=== PATIENT | male | born 1965 | race African-American/Black ===

== ENCOUNTER 2019-05-15 22:27 | Inpatient (IN) ==
[2019-05-15] MEDS ORDERED: ASPIRIN PO ONE (22:39)
[2019-05-15] MEDS ORDERED: NS 1,000 ML IV ONE (23:23)
[2019-05-15] MEDS ORDERED: ROCEPHIN 1 GM in NS 50 ML IV ONE (23:23)
[2019-05-15 23:30] LABS: BASO# 0.02 X1000 (0.0-0.2); BASO% 0.1 % (0.0-0.8); HEMATOCRIT 38.2 % (42.0-52.0); HEMOGLOBIN 13.6 g/dL (14.0-18.0); IMM GRAN# 0.04 X1000 (0.0-0.04); IMM GRAN% 0.2 % (0.0-0.5); LYMPH# 1.69 X1000 (1.2-3.4); MCHC 35.6 g/dL (33-37); MCV 92.7 FL (81-99); MONO# 1.46 X1000 (0.11-0.59); MONO% 8.7 % (1.7-9.3); MPV 11.8 FL (7.4-10.4); NEUT# 13.66 X1000 (1.4-6.5); PLT 114 X1000 (130-400); RBC 4.12 XMIL (4.7-6.1); RDW 13.3 % (11.5-14.5); WBC 16.87 X1000 (4.8-10.8)
[2019-05-15 23:45] LABS: INFLUENZA A NEGATIVE (NEGATIVE); INFLUENZA B NEGATIVE (NEGATIVE)
[2019-05-15 23:47] LABS: INR 0.89; PROTIME 12.5 Seconds (11.0-16.0)
[2019-05-15 23:48] LABS: PTT 27.8 Seconds (22.3-41.8)
[2019-05-15 23:50] LABS: URINE SOURCE CLEAN CATCH
[2019-05-15 23:53] LABS: BILIRUBIN URINE SMALL (NEGATIVE); BLOOD URINE TRACE (NEGATIVE); COLOR ORANGE; GLUCOSE URINE TRACE mg/dL (NEGATIVE); KETONE URINE 10 mg/dL (NEGATIVE); LEUKOCYTES URINE NEGATIVE (NEGATIVE); NITRITE URINE NEGATIVE (NEGATIVE); PROTEIN URINE 100 mg/dL (NEGATIVE); SP GRAVITY URINE 1.028; TURBIDITY URINE TURBID (CLEAR); UROBILINOGEN URINE 4 mg/dL (NORMAL)
[2019-05-15 23:59] LABS: ALBUMIN 4.6 g/dL (3.5-5.0); CALCIUM 9.8 mg/dL (8.8-10.2); CREATININE 1.3 mg/dL (0.7-1.2); POTASSIUM 4.2 mmol/L (3.5-5.1); TOTAL PROTEIN 7.9 g/dL (6.3-8.3)
[2019-05-16 00:03] LABS: UR AMPHETAMINES QUAL NONE DETECTED (NONE DETECT); UR BARBITUATES QUAL NONE DETECTED (NONE DETECT); UR BENZODIAZEPIN QUAL NONE DETECTED (NONE DETECT); UR CANNABINOIDS QUAL PRESUMPTIVE POSITIVE (NONE DETECT); UR COCAINE QUAL PRESUMPTIVE POSITIVE (NONE DETECT); UR METHADONE QUAL NONE DETECTED (NONE DETECT); UR METHAMPHETAMINE QUAL NONE DETECTED (NONE DETECT); UR OPIATES QUAL NONE DETECTED (NONE DETECT); UR OXYCODONE QUAL NONE DETECTED (NONE DETECT); UR PCP QUAL NONE DETECTED (NONE DETECT); UR PROPOXYPHENE QUAL NONE DETECTED (NONE DETECT); UR TCA QUAL NONE DETECTED (NONE DETECT)
[2019-05-16 00:09] LABS: UR EPITHELIAL CELLS <10 /HPF (<10); URINE BACTERIA 3+ /HPF; URINE RBC <10 /HPF (<10); URINE WBC <10 /HPF (<10); URINE YEAST NONE SEEN
[2019-05-16 00:11] LABS: URINE CRYSTALS NONE SEEN; URINE SMALL ROUND CELLS NONE SEEN
[2019-05-16 00:16] LABS: CK-MB 8.35 ng/mL (0.0-5.0)
[2019-05-16] MEDS ORDERED: SOLU-MEDROL IV ONE (00:30)
[2019-05-16] MEDS ORDERED: SODIUM CHLORIDE 0.9% INJ ONE (00:30)
[2019-05-16] MEDS ORDERED: PEPCID IV ONE (00:30)
[2019-05-16] MEDS ORDERED: NEO-SYNEPHRINE ONE (00:56)
[2019-05-16] MEDS ORDERED: NS 250 ML ONE (00:56)
[2019-05-16] MEDS ORDERED: NEO-SYNEPHRINE 50 MG in NS 250 ML IV SCH (01:00)
--- NOTE | 2019-05-16 02:26 | PROVIDER DOCUMENTATION ---
This chart was entered by Dina Cesar Scribe, acting as scribe for Jimmy Salmon MD. HPI-Respiratory General - General Chief Complaint: Shortness of Breath Stated Complaint: SOB Time Seen by Provider: 05/15/19 22:52 Source: patient, family (father) Allergies/Adverse Reactions: Patient Allergies Allergy/AdvReac Type Severity Reaction Status Date / Time No Known Allergies Allergy Verified 05/15/19 22:41 Home Medications: Home Medication List Medication Instructions Recorded Confirmed Last Taken Type NK [No Home Medications] 05/15/19 05/15/19 Unknown History - History of Present Illness-Resp Nature of Presenting Problem: Pt is a 53 yobm with c/o of SOB / dyspnea, pain w/ inspiration, productive cough with green phlegm, sore throat, and chills that pt states started yesterday. Pt states he has not been eating and drinking. Pt denies hx of COPD, HTN and Diabetes. Pt states he smokes. Pt is alert and nontoxic in appearance. Quality of Pain: reports: tightness Severity in ED: reports: moderate Onset/Duration: reports: abrupt, 24 hours ago Timing: reports: still present, constant Exposure: reports: unknown cause Cough Quality/Degree: reports: productive cough (with green phlegm) Current Respiratory Medication Therapy: Initiated see nurses note Modifying Factors: worse with: exertion, coughing, deep breath Associated Symptoms: reports: chest pain/soreness, cough, fever/chills, hurts to breathe, shortness of breath Similar Symptoms Previously?: No Recently seen or treated by another doctor?: No Review of Systems - Adult - REVIEW OF SYSTEMS - ADULT Constitutional: reports: chills Eyes: reports: no symptoms reported Ears, Nose, Mouth & Throat: reports: no symptoms reported Cardiovascular: reports: chest pain. denies: syncope Respiratory: reports: cough (productive with green phlegm), shortness of breath Gastrointestinal: denies: abdominal pain, nausea, vomiting Genitourinary: reports: no symptoms reported Musculoskeletal: reports: no symptoms reported Integumentary: reports: no symptoms reported Neurological: reports: no symptoms reported Psychiatric: reports: no symptoms reported Endocrine: reports: no symptoms reported Hematologic/Lymphatic: reports: no symptoms reported Allergic/Immunologic: reports: no symptoms reported All Other Systems: Reviewed and Negative Past History - Adult - PAST MEDICAL HISTORY-ADULT Review of Records: reports: Nursing Assessment Review, Medications Reviewed, Social history reviewed & non-contributory. Major Childhood Illnesses: reports: denies history Cardiovascular: denies: cardiac disease, A-Fib, blood clots, CAD, HTN, PAD, palpitations Respiratory: reports: bronchitis, COPD. denies: pneumonia, tuberculosis Gastrointestinal: reports: denies history Obstetrical/Gynecological: reports: denies history Genitourinary: reports: denies history. denies: kidney disease, kidney stones Musculoskeletal: reports: neck/back injury (chronic neck pain) Neurological: reports: denies history Psychiatric: reports: denies history Endocrine/Immune: reports: denies history Other Conditions: reports: denies history - PRIOR SURGERIES/PROCEDURES Surgical/Procedure History: reports: orthopedic (extremity) - IMMUNIZATION STATUS Childhood Immunizations: See Nurse Assessment Flu Vaccine: See Nurse Assessment - FAMILY HISTORY Family History: reviewed, not pertinent - SOCIAL HISTORY Smoking: cigarettes, greater than 1 pack/day Substance Use: alcohol Living Situation: family (father) Physical Exam-General - PHYSICAL EXAM-ADULT Initial Vital Signs Reviewed: Yes (Temp 97.4; HR 119) - CONSTITUTIONAL General Appearance: appears well, alert, mild distress, thin - EYES Eyes: PERRL/EOMI, pink conjunctivae - HEAD, EARS, NOSE, MOUTH & THROAT HENMT: normocephalic/atraumatic, moist mucous membranes, normal ENT inspection - NECK Neck: non-tender, full range of motion, supple, normal inspection - RESPIRATORY Respiratory: lungs clear, normal breath sounds, no respiratory distress, pain on inspiration, other (pleuritic chest pain) - CARDIOVASCULAR Cardiovascular: normal peripheral pulses, no edema, no gallop, no JVD, no murmur , tachycardia - GASTROINTESTINAL (ABDOMEN) Abdominal Exam: normal bowel sounds, non tender, soft, no organomegaly, no pulsatile mass - LYMPHATIC Lymphatic: no adenopathy - MUSCULOSKELETAL Back Exam: normal inspection, no CVA tenderness, no vertebral tenderness Extremity: normal range of motion, non-tender, normal gait, normal inspection, no pedal edema, no calf tenderness, normal capillary refill - SKIN Integumentary: normal color, normal turgor, warm/dry - NEUROLOGIC Neurologic: grossly normal - PSYCHIATRIC Psych/Mental Status: normal thought content, normal thought process, oriented x 3, anxious Progress - PLAN OF CARE/RESULTS Progress/Plan/Lab Results: Vital Signs - 8 hr 05/15/19 22:30 05/16/19 00:24 05/16/19 00:32 Temperature 97.4 F L Pulse Rate 119 H 110 H 107 H Respiratory Rate 18 30 H 31 H Blood Pressure 108/66 89/65 96/72 O2 Sat by Pulse Oximetry 100 100 100 05/16/19 01:09 05/16/19 01:45 05/16/19 02:07 Temperature 98.0 F Pulse Rate 98 H 100 H 100 H Respiratory Rate 30 H 30 H 25 H Blood Pressure 67/46 105/76 99/72 O2 Sat by Pulse Oximetry 100 100 100 05/16/19 02:16 Temperature Pulse Rate Respiratory Rate Blood Pressure 105/73 O2 Sat by Pulse Oximetry Laboratory Results - last 24 hr 05/15/19 05/15/19 05/15/19 22:43 23:05 23:05 WBC RBC Hgb Hct MCV MCH MCHC RDW Std Deviation Plt Count MPV Immature Gran % (Auto) Neut % (Auto) Lymph % (Auto) [place] % (Auto) Eos % (Auto) Baso % (Auto) Immature Gran # (Auto) Neut # (Auto) Lymph # (Auto) [place] # (Auto) Eos # (Auto) Baso # (Auto) PT INR PTT (Actin FS) Sodium 137 Potassium 4.2 Chloride 96 L Carbon Dioxide 22 L Anion Gap 20 BUN 12 Creatinine 1.3 H Estimated GFR/1.73 m2 58 BUN/Creatinine Ratio 9 Glucose 143 H Calculated Osmolality 276 Calcium 9.8 Total Bilirubin 2.00 H AST 123 H ALT 123 H Alkaline Phosphatase 127 H Creatine Kinase 209 H Creatine Kinase Index 4.0 H CK-MB (CK-2) 8.35 H Troponin T High Sens [id number] Pept 82203 H Total Protein 7.9 Albumin 4.6 Globulin 3.0 Albumin/Globulin Ratio 1.0 Plasma Lactate Urine Source Urine Color Urine Turbidity Urine pH Ur Specific Baker Urine Protein Ur Glucose (Stick) Ur Ketones (Stick) Urine Blood Urine Nitrite Urine Bilirubin Urobilinogen Dipstick Urine Leukocytes Urine WBC (Auto) Urine RBC (Auto) U Epithel Cells (Auto) Urine Bacteria (Auto) Urine Crystals Small Round Cells Urine Casts Urine Yeast-like Cells Urine Opiates Screen Ur Oxycodone Screen Urine Methadone Screen U Propoxyphene Qual Ur Barbituates Screen Ur Tricyclics Screen Ur Phencyclidine Scrn Ur Amphetamines Screen U Methamphetamines Scrn U Benzodiazepines Scrn Urine Cocaine Screen U Cannabinoids Screen Influenza A (Rapid) NEGATIVE Influenza B (Rapid) NEGATIVE 05/15/19 05/15/19 05/15/19 23:05 23:05 23:05 WBC 16.87 H RBC 4.12 L Hgb 13.6 L Hct 38.2 L MCV 92.7 MCH 33.0 H MCHC 35.6 RDW Std Deviation 13.3 Plt Count 114 L MPV 11.8 H Immature Gran % (Auto) 0.2 Neut % (Auto) 81.0 H Lymph % (Auto) 10.0 L [place] % (Auto) 8.7 Eos % (Auto) 0.0 Baso % (Auto) 0.1 Immature Gran # (Auto) 0.04 Neut # (Auto) 13.66 H Lymph # (Auto) 1.69 [place] # (Auto) 1.46 H Eos # (Auto) 0.00 Baso # (Auto) 0.02 PT 12.5 INR 0.89 PTT (Actin FS) 27.8 Sodium Potassium Chloride Carbon Dioxide Anion Gap BUN Creatinine Estimated GFR/1.73 m2 BUN/Creatinine Ratio Glucose Calculated Osmolality Calcium Total Bilirubin AST ALT Alkaline Phosphatase Creatine Kinase Creatine Kinase Index CK-MB (CK-2) Troponin T High Sens 176 H* [id number] Pept Total Protein Albumin Globulin Albumin/Globulin Ratio Plasma Lactate Urine Source Urine Color Urine Turbidity Urine pH Ur Specific Baker Urine Protein Ur Glucose (Stick) Ur Ketones (Stick) Urine Blood Urine Nitrite Urine Bilirubin Urobilinogen Dipstick Urine Leukocytes Urine WBC (Auto) Urine RBC (Auto) U Epithel Cells (Auto) Urine Bacteria (Auto) Urine Crystals Small Round Cells Urine Casts Urine Yeast-like Cells Urine Opiates Screen Ur Oxycodone Screen Urine Methadone Screen U Propoxyphene Qual Ur Barbituates Screen Ur Tricyclics Screen Ur Phencyclidine Scrn Ur Amphetamines Screen U Methamphetamines Scrn U Benzodiazepines Scrn Urine Cocaine Screen U Cannabinoids Screen Influenza A (Rapid) Influenza B (Rapid) 05/15/19 05/15/19 05/15/19 23:05 23:29 23:29 WBC RBC Hgb Hct MCV MCH MCHC RDW Std Deviation Plt Count MPV Immature Gran % (Auto) Neut % (Auto) Lymph % (Auto) [place] % (Auto) Eos % (Auto) Baso % (Auto) Immature Gran # (Auto) Neut # (Auto) Lymph # (Auto) [place] # (Auto) Eos # (Auto) Baso # (Auto) PT INR PTT (Actin FS) Sodium Potassium Chloride Carbon Dioxide Anion Gap BUN Creatinine Estimated GFR/1.73 m2 BUN/Creatinine Ratio Glucose Calculated Osmolality Calcium Total Bilirubin AST ALT Alkaline Phosphatase Creatine Kinase Creatine Kinase Index CK-MB (CK-2) Troponin T High Sens [id number] Pept Total Protein Albumin Globulin Albumin/Globulin Ratio Plasma Lactate 2.9 H Urine Source CLEAN CATCH Urine Color ORANGE Urine Turbidity TURBID Urine pH 6.0 Ur Specific Baker 1.028 Urine Protein 100 A Ur Glucose (Stick) TRACE Ur Ketones (Stick) 10 A Urine Blood TRACE A Urine Nitrite NEGATIVE Urine Bilirubin SMALL A Urobilinogen Dipstick 4 A Urine Leukocytes NEGATIVE Urine WBC (Auto) <10 Urine RBC (Auto) <10 U Epithel Cells (Auto) <10 Urine Bacteria (Auto) 3+ Urine Crystals NONE SEEN Small Round Cells NONE SEEN Urine Casts WHITE CELL PRESENT Urine Yeast-like Cells NONE SEEN Urine Opiates Screen NONE DETECTED Ur Oxycodone Screen NONE DETECTED Urine Methadone Screen NONE DETECTED U Propoxyphene Qual NONE DETECTED Ur Barbituates Screen NONE DETECTED Ur Tricyclics Screen NONE DETECTED Ur Phencyclidine Scrn NONE DETECTED Ur Amphetamines Screen NONE DETECTED U Methamphetamines Scrn NONE DETECTED U Benzodiazepines Scrn NONE DETECTED Urine Cocaine Screen PRESUMPTIVE POSITIVE A U Cannabinoids Screen PRESUMPTIVE POSITIVE A Influenza A (Rapid) Influenza B (Rapid) 05/16/19 05/16/19 01:38 01:38 WBC RBC Hgb Hct MCV MCH MCHC RDW Std Deviation Plt Count MPV Immature Gran % (Auto) Neut % (Auto) Lymph % (Auto) [place] % (Auto) Eos % (Auto) Baso % (Auto) Immature Gran # (Auto) Neut # (Auto) Lymph # (Auto) [place] # (Auto) Eos # (Auto) Baso # (Auto) PT INR PTT (Actin FS) Sodium Potassium Chloride Carbon Dioxide Anion Gap BUN Creatinine Estimated GFR/1.73 m2 BUN/Creatinine Ratio Glucose Calculated Osmolality Calcium Total Bilirubin AST ALT Alkaline Phosphatase Creatine Kinase Creatine Kinase Index CK-MB (CK-2) Troponin T High Sens 129 H* Msk-H-Yiucnpvatyk Pept Total Protein Albumin Globulin Albumin/Globulin Ratio Plasma Lactate 1.7 Urine Source Urine Color Urine Turbidity Urine pH Ur Specific Baker Urine Protein Ur Glucose (Stick) Ur Ketones (Stick) Urine Blood Urine Nitrite Urine Bilirubin Urobilinogen Dipstick Urine Leukocytes Urine WBC (Auto) Urine RBC (Auto) U Epithel Cells (Auto) Urine Bacteria (Auto) Urine Crystals Small Round Cells Urine Casts Urine Yeast-like Cells Urine Opiates Screen Ur Oxycodone Screen Urine Methadone Screen U Propoxyphene Qual Ur Barbituates Screen Ur Tricyclics Screen Ur Phencyclidine Scrn Ur Amphetamines Screen U Methamphetamines Scrn U Benzodiazepines Scrn Urine Cocaine Screen U Cannabinoids Screen Influenza A (Rapid) Influenza B (Rapid) Orders Category Date Time Status Admit [facility] Routine AdmDCTranf 05/16/19 02:18 Active Bedrest [Activity Type] ORDERED Care 05/16/19 02:21 Active Cardiac Monitoring DIRECTED Care 05/15/19 22:39 Active NEWS Score 2-4:Order NEWS Lactate Series NOW Care 05/15/19 22:38 Active Oxygen Therapy- ED Nursing DIRECTED Care 05/15/19 22:39 Active Saline Loc NOW Care 05/15/19 22:39 Active Vital Signs Order Q1H Care 05/16/19 02:19 Active CHEST-2 VIEWS [RAD] Stat Exams 05/15/19 22:39 Taken US ABDOMEN-COMPLETE [US] Stat Exams 05/16/19 02:23 Ordered BLOOD CULTURE [BLDCUL] Stat Lab 05/15/19 23:22 Ordered CBC WITH ELECTRONIC DIFF [HEME] Stat Lab 05/15/19 23:05 Completed CK PROFILE [SP CHEM] Stat Lab 05/15/19 23:05 Completed COMPREHENSIVE METABOLIC PANEL [CHEM] Stat Lab 05/15/19 23:05 Completed HEPATITIS PROFILE [HH] Routine Lab 05/17/19 06:[address] Stat Lab 05/15/19 22:43 Completed LACTATE, PLASMA [CHEM] Lab 05/16/19 01:38 Completed LACTATE, PLASMA [CHEM] Lab 05/16/19 04:45 Uncollected LACTATE, PLASMA [CHEM] Q3H Lab 05/15/19 23:05 Completed PRO B-NATRIURETIC PEPTIDE Stat Lab 05/15/19 23:05 Completed PROTIME WITH INR [COAG] Stat Lab 05/15/19 23:05 Completed PTT [COAG] Stat Lab 05/15/19 23:05 Completed SPUTUM CULTURE WITH GRAM STAIN [RM] Stat Lab 05/15/19 23:22 Uncollected TROPONIN T HIGH SENSITIVITY Stat Lab 05/15/19 23:05 Completed TROPONIN T HIGH SENSITIVITY Stat Lab 05/16/19 01:38 Completed URINALYSIS W/POSS RFLX CULT [URINALYSIS] Stat Lab 05/15/19 23:29 Completed URINE CULTURE [RM] Routine Lab 05/16/19 00:11 [address] DRUG SCREEN [address] Stat Lab 05/15/19 23:29 Completed URINE MANUAL MICROSCOPIC [URINALYSIS] Stat Lab 05/15/19 23:29 Completed 0.9% Sodium Chloride Inj [Ns] 1,000 ml Med 05/16/19 02:30 Ordered IV 100 mls/hr 0.9% Sodium Chloride Inj [Ns] 1,000 ml Med 05/15/19 23:23 Discontinued IV 999 mls/hr 0.9% Sodium Chloride Inj [Ns] 250 ml Med 05/16/19 01:00 Active Phenylephrine [Ronald-Synephrine] 50 mg IV As Directed mls/hr 0.9% Sodium Chloride Inj [Ns] 250 ml Med 05/16/19 00:56 Discontinued .ROUTE As directed Aspirin Med 05/15/19 22:39 Discontinued 325 mg PO NOW ONE CefTRIAXONE [Rocephin] 1 gm Med 05/15/19 23:23 Discontinued 0.9% Sodium Chloride Inj [Ns] 50 ml IV NOW Famotidine [Pepcid] Med 05/16/19 00:30 Discontinued 20 mg IV NOW ONE Methylprednisolone Sod Succ [Solu-Medrol] Med 05/16/19 00:30 Discontinued 125 mg IV NOW ONE Phenylephrine [Ronald-Synephrine] Med 05/16/19 00:56 Discontinued 50 mg .ROUTE .STK-MED ONE Sodium Chloride 0.9% Med 05/16/19 00:30 Discontinued 5 - 10 ml INJ NOW ONE CP/SOB/Palp >45 yrs of Age Stat Oth 05/15/19 22:39 Ordered EKG [EKG] Stat Ther 05/15/19 22:39 Ordered Transfer/Admit Order [TRANSFER] Routine Transfer 05/16/19 02:19 Ordered Result Diagrams: 05/15/19 23:05 05/15/19 23:05 - REASSESSMENT Reassessment #1 Time Reassessed: 00:51 Status: unchanged Reassessment Comment: at bedside discussing POC Reassessment #2 Time Reassessed: 00:59 Status: worsening (BP 96/ AFTER 1.5 LITER IVF, CP SAID 8/10 AND CANT GIVE NITRO OR MORPHINE WITH SYST 96. WILL START NEOSYNEPH GTT W/ PLAN TO ADD ANALGESIC. DR ROJAS STEM LEAD FORMER HAS BEEN PAGED 15 MIN AGO. NOT ELEV LACTIC ACID, WBC,BNP. CXR CLEAR BUT ACTIVELY PRODUCING GREEN SPUTUM.) Reassessment #3 Time Reassessed: 02:12 Status: unchanged (repeat Troponin 129, BP now 99/ on Ronald gtt and CP resolved. will transfer to ic[facility], call dr castillo) - EKG 1 Time of EKG reading by physician:: 12:07 EKG Read and Signed by:: Jimmy Salmon EKG Interpretation (*Must complete 3 of following elements*): Abnormal Rate: 110 Rhythm: Sinus tachycardia QRS: LVH (minimal voltage criteria for LVH, may be normal variant) Comments: T wave abnormality, consider inferior ischemia 2 Time of EKG reading by physician:: 00:33 EKG Read and Signed by:: Jimmy Salmon (No STEMI) EKG Interpretation (*Must complete 3 of following elements*): Abnormal Rate: 106 Rhythm: Sinus tachycardia QRS: LVH (minimal volage criteria for LVH, may be normal variant) Comments: T wave abnormality, consider inferior ischemia - XRAY 1 XRAY Study: Chest - CONSULTS/PCP/HOSPITALIST Notification #1 *Consult/PCP/Hospitalist*: DR Ofelia ROJAS, CARD Time Discussed: 01:25 Consult Disposition: other (DETAILS DISCUSSED. DR ROJAS IN AGREEMENT W/ STARTING RONALD GTT W/ SYS 84 AND ONGOING CP. SAYS TO GET A STAT 2ND TROPONINN NOW, IF SAME LEVEL, GO TO ICU [facility]. IF TROP UP > 200 THEN TRANSFER TO [facility]) #2 Consult: DR DE ANDA Time Discussed: 02:12 Consult Disposition: Admit (ICU AT [facility]) Departure - Departure Date of Disposition Decision: 05/16/19 Time of Disposition Decision: 02:14 DIAGNOSIS: Sepsis associated hypotension, Bronchitis, Lactic acid acidosis, Cocaine abuse Chest pain Qualifiers: Chest pain type: chest pain due to myocardial ischemia Ischemic chest pain type: unstable angina pectoris Qualified Code(s): I20.0 - Unstable angina Leukocytosis Qualifiers: Leukocytosis type: unspecified Qualified Code(s): D72.829 - Elevated white blood cell count, unspecified Disposition: ADMITTED INPATIENT 09 Certified Medical Emergency: Emergent Condition: Fair Referrals and Follow-Ups: None,PCP [Primary Care Provider] - - Critical Care Note This patient required my direct & personal management of CC.: Yes Total Time (mins): 65 Critical Care Statement: This patient required my direct personal management to treat or rule out processes, the absence of which, could potentiallly result in sudden, clinically significant life or limb threatening deterioration. Attestation - Physician/ VERNELL Attestation Patient care was provided by Advanced Practice Provider:: No The physician spent face to face time with patient:: Yes Advanced Practice Provider documentation review:: Supervising physician onsite and consulted in the evaluation and care of this patient. The physician did have a face to face encounter with the patient. This chart was documented by the indicated scribe, (Dina Cesar, Brandi) and accurately reflects the services I performed and decisions made by me, Jimmy Salmon MD, as attested by the provider's signature.
[2019-05-16] MEDS: NS 1,000 ML IV SCH ×2 (02:59→13:20)
[2019-05-16] MEDS: ZOSYN 3.375 GM in NS 50 ML IV SCH ×4 (02:59→20:33)
[2019-05-16] MEDS: ZYVOX 600 MG/D5W 600 MG/300 ML IVPB IV SCH ×2 (04:22→15:00)
--- NOTE | 2019-05-16 05:51 | Diag Imaging Result Doc PS360 ---
EXAM: CHEST-2 VIEWS HISTORY: SOB TECHNIQUE: Two views COMPARISON: 08/06/2015 FINDINGS: The lungs are well expanded. The heart is not enlarged. The vessels are not distended. There are no infiltrates. No pleural effusions. IMPRESSION: No acute abnormality. Electronically signed by Houston Acosta 05/16/2019 5:49 AM
[2019-05-16] MEDS ORDERED: MORPHINE IV ONE (06:11)
[2019-05-16] MEDS ORDERED: DUONEB (A & A) INH PRN (06:17)
[2019-05-16] MEDS ORDERED: NICODERM PATCH TD PRN (06:17)
[2019-05-16] MEDS ORDERED: LIBRIUM PO PRN (06:17)
[2019-05-16] MEDS: PRILOSEC PO SCH (06:31)
--- NOTE | 2019-05-16 06:37 | EKG Report ---
Test Performed on : 05/16/2019 00:07:16 AM Test Reason : SOB Blood Pressure : / mmHG Vent. Rate : 110 BPM Atrial Rate : 110 BPM P-R Int : 166 ms QRS Dur : 090 ms QT Int : 342 ms P-R-T Axes : 066 033 241 degrees QTc Int : 462 ms Sinus tachycardia. Minimal voltage criteria for LVH, may be normal variant T wave abnormality, consider inferior ischemia Abnormal ECG When compared with ECG of 06-AUG-2015 06:39, ST no longer elevated in Inferior leads ST no longer elevated in Anterior leads T wave inversion now evident in Inferior leads Nonspecific T wave abnormality now evident in Anterolateral leads Unconfirmed Result
[2019-05-16] MEDS: DUONEB (A & A) INH SCH ×4 (08:18→20:18)
--- NOTE | 2019-05-16 08:34 | HISTORY AND PHYSICAL ---
CHIEF COMPLAINT: Cough for about 2 days. HISTORY OF PRESENT ILLNESS: Mr. Parish Chu is a 53-year-old male, who has a history of COPD, as well as polysubstance abuse, tobacco use history, nicotine dependence. He comes into the hospital because of cough, which has been ongoing for about 2 days. This is productive of greenish sputum. He has had associated shortness of breath, as well as chest pain. The patient smokes about 1 pack of cigarettes per day for 10 years. The patient initially presented to the [facility], and during my evaluation today he was found to be hypotensive. At some point, blood pressure was as low as 67/46. The patient transferred to [facility] for further management. PAST MEDICAL HISTORY: Significant for COPD. SOCIAL HISTORY: He drinks alcohol, smokes cigarettes and uses drugs, marijuana as well as cocaine. ALLERGIES: No known drug allergies. PAST SURGICAL HISTORY: He has had surgery to the right hand. FAMILY HISTORY: Positive for diabetes, as well as hypertension. REVIEW OF SYSTEMS: Constitutional: No fever. RUG MEASURER: No headaches. ENT: Has some sinus congestion. Eyes: Uses glasses. Cardiovascular: Has chest pain. GI: Has nausea with vomiting and also diarrhea with abdominal pains. : No dysuria. Dermatology: No skin lesions. Musculoskeletal: Has back pain. Has pain to the right hand. Endocrinology: No thyroid disease or diabetes. Hematology: No bleeding problems. PHYSICAL EXAMINATION: VITAL SIGNS: Vital signs are as follows: Temperature is 96.7 degrees, pulse 94, respirations 18, blood pressure is 113/84, and O2 saturation is 97%. HEENT: Atraumatic, normocephalic. He is anicteric. Extraocular movements intact. No oral lesions noted. NECK: No lymphadenopathy or thyromegaly. CARDIOVASCULAR SYSTEM: S1, S2. RESPIRATORY SYSTEM: Has evidence of good air entry bilaterally. No rales or rhonchi noted. ABDOMEN: Soft, nontender. No masses felt. EXTREMITIES: No evidence of edema. CENTRAL NERVOUS SYSTEM: No obvious focal deficits noted. LABORATORY DATA: Labs are as follows: WBC 16.87, hematocrit is 38.2 with a platelet count of 114. INR is 0.89. Sodium 137, potassium 4.2, chloride is 96, bicarbonate 22. BUN is 12, creatinine is 1.3, glucose 143. AST 123, ALT 123, alkaline phosphatase 127. Troponin 176. UA with negative leukocytes. UDS positive for cocaine as well as cannabinoids. Influenza A and B negative. IMAGING STUDIES: Chest x-ray: No infiltrates noted. ASSESSMENT AND PLAN: 1. Probable septic shock. Maintain patient on intravenous fluids. Broad spectrum antibiotics. Follow up on culture results. 2. Chronic obstructive pulmonary disease. Maintain patient on nebulized bronchodilators as needed. 3. Polysubstance abuse. Aware. The patient needs abstinence from continuous drug use. 4. Alcoholism. Maintain patient on delirium tremens prophylaxis, along with thiamine, folic acid and multivitamin. Check magnesium and phosphatase levels and replace those if needed. 5. Tobacco use history. Recommend nicotine patch. 6. Abnormal liver function tests. Check hepatitis panel, as well as abdominal ultrasound. 7. Elevated troponin. Maintain patient on telemetry. Follow up on serial cardiac enzymes. Check electrocardiogram. Consult with Cardiology. 8. Elevated proBNP level. Check two-dimensional echocardiogram of the heart. 9. Acute kidney injury. Most likely prerenal azotemia. Maintain patient on intravenous fluids. Follow up on renal function. 10. Anemia. Check iron studies, along with B 12 and folate level. Also check stool for occult blood. 11. Thrombocytopenia. Etiology not clear. Repeat platelet count. 12. Hypoglycemia. The patient does not have a history of diabetes. We checked hemoglobin A1c level. 13. Deep vein thrombosis prophylaxis. Sequential compression devices. 14. Gastrointestinal prophylaxis. Proton pump inhibitor. cc: Dom Beasley MD
[2019-05-16] MEDS ORDERED: LR 1,000 ML IV ONE (08:59)
[2019-05-16] MEDS ORDERED: LIPITOR PO ONE (09:02)
--- NOTE | 2019-05-16 09:52 | SEPSIS: TISSUE PERFUSION ASSMT ---
Sepsis: Tissue Perfusion Assmt - Physical Exam Assessment Date: 05/16/19 Time Assessment Initialized: 09:00 Vital Signs: Last Vital Signs Temp 96.7 F L 05/16/19 05:00 Pulse 90 05/16/19 08:19 Resp 20 05/16/19 08:19 BP 113/84 05/16/19 05:00 Pulse Ox 99 05/16/19 08:19 Height 6 ft 3 in Weight 59.421 kg Lung Sounds: lungs clear Heart Sounds: Regular Capillary Refill Time: Less Than 2 Seconds Peripheral Pulse Evaluation: radial (R): 2+, radial (L): 2+, dorsalis-pedis (R): 2+, dorsalis-pedis (L): 2+, posterior tibialis (R): 2+, posterior tibialis (L): 2+ Skin Exam: pink - Alternative Fluid Bolus Bolus Option: Alternative Fluid Resuscitation Bolus for morbidly obese patients with a BMI >30, Refer to [facility] [place] Body Weight Chart for Reference. Is patient's BMI >30?: No Patient's BMI: 16 Fluid Bolus dosed using the [facility] [place] Body Weight Chart: No (1 L was given in ER. Additional 1 L ordered.) - Impression Impression: Tissue Perfusion Adequate
[2019-05-16] MEDS ORDERED: CARMEX LIP BALM TOP ONE (09:56)
[2019-05-16] MEDS ORDERED: SODIUM CHLORIDE 0.9% INJ SCH (10:00)
[2019-05-16] MEDS ORDERED: LOVENOX SUBQ SCH (10:00)
[2019-05-16] MEDS ORDERED: PROTONIX IV SCH (10:00)
--- NOTE | 2019-05-16 10:06 | EKG Report ---
Test Performed on : 05/16/2019 09:53:54 AM Test Reason : Follow up EKG Blood Pressure : / mmHG Vent. Rate : 093 BPM Atrial Rate : 093 BPM P-R Int : 160 ms QRS Dur : 098 ms QT Int : 454 ms P-R-T Axes : 062 064 130 degrees QTc Int : 564 ms Critical Test Result: Long QTc Normal sinus rhythm. Minimal voltage criteria for LVH, may be normal variant T wave abnormality, consider anterior ischemia Nonspecific T wave abnormality Inferior leads Prolonged QT Abnormal ECG When compared with ECG of 16-MAY-2019 00:32, (Unconfirmed) Nonspecific T wave abnormality has replaced inverted T waves in Inferior leads Confirmed by Alex Ge MD ([id number]) on 05/17/2019 10:58:20 AM
[2019-05-16] MEDS: FOLIC ACID PO SCH (10:07)
[2019-05-16] MEDS: VITAMIN B-1 PO SCH (10:07)
[2019-05-16] MEDS: CENTRUM SILVER PO SCH (10:07)
--- NOTE | 2019-05-16 10:18 | EKG Report ---
Test Performed on : 05/16/2019 00:32:20 AM Test Reason : ER Blood Pressure : / mmHG Vent. Rate : 106 BPM Atrial Rate : 106 BPM P-R Int : 156 ms QRS Dur : 090 ms QT Int : 386 ms P-R-T Axes : 077 054 185 degrees QTc Int : 512 ms Sinus tachycardia. Minimal voltage criteria for LVH, may be normal variant T wave abnormality, consider inferior ischemia Abnormal ECG When compared with ECG of 16-MAY-2019 00:07, (Unconfirmed) QT has lengthened Unconfirmed Result
--- NOTE | 2019-05-16 10:42 | PROGRESS NOTE ---
DATE: 05/16/2019 INTERVAL HISTORY: No acute events overnight. SUBJECTIVE: Mr. Chu complains that he had been having nausea, vomiting and abdominal pain since about 5 days' duration. However, only since last 2 days, he started experiencing chest pain and some orthopnea, so he had decided to come to the hospital. He also admits to be using cocaine about 5 days prior to presentation and active alcohol and tobacco abuse. His brother is currently at bedside. VITALS: Currently temperature 96.7 degrees, pulse 90, respiratory rate 20, blood pressure 113/84. He is saturating 99% on 2 L nasal cannula. PHYSICAL EXAMINATION: He is not in any acute distress. Oral cavity is moist.Lungs: Air entry bilaterally equal. No wheeze, rhonchi, crackles. Cardiovascular: S1, S2 normal. No murmur or gallop. Abdomen: Soft, tenderness in the right upper quadrant with positive Elizabeth's sign. Active bowel sounds. Extremity: No lower extremity edema. INFORMATION CODER: He is alert and oriented x3. He has some diaphoresis on my evaluation. LABS: Consistent with leukocytosis, transaminitis, elevated troponin, elevated proBNP and lactic acidosis. His urine toxicology was positive. Microbiology, blood cultures are in lab. Sputum culture is pending. ASSESSMENT AND PLAN: 1. Septic shock. Chest x-ray did not have any known infiltrate. Considering abdominal right upper quadrant tenderness, I will get CT scan of the abdomen and pelvis to rule out acute cholecystitis. We will resuscitate him with 1 more L of intravenous fluids. Continue intravenous fluids. I will insert Bingham catheter. Monitor lactate and BMP also follow up ultrasound for evaluation of right upper quadrant. 2. Acute kidney injury, lactic acidosis and leukocytosis, as well as transaminitis, could be in the setting of septic shock. I will monitor and trend lactate and kidney function. 3. Acute liver failure. This could be related to alcoholic hepatitis versus cholecystitis versus other etiology. Follow up hepatitis panel, right upper quadrant ultrasound and CT scan of the abdomen and pelvis. I will trend on the liver function test. 4. Non ST elevation myocardial infarction vs type 2 AR. This could be in the setting of coronary vasospasm because of cocaine abuse. He did have inferior T-wave inversion. I will keep him on aspirin, high-dose atorvastatin. I will repeat another EKG, trend troponin, and I will appreciate further Cardiology's recommendation. I will give him 1 time 60 mg of enoxaparin before dosing it every 12 hours as I await further Cardiology recommendation. 5. Polysubstance abuse including tobacco, alcohol, cocaine and cannabis. He was extensively counseled about stopping these substances. I will keep him on intravenous lorazepam as needed, thiamine, multivitamin and monitor for any signs of withdrawals. He denies any known history of withdrawals. DISPOSITION: The patient's condition is critical. More than 30 minutes of critical time was spent taking care of this patient. Plan of care discussed with the patient's brother at bedside. The patient did not want us to reveal his health information to anyone else except his brother. All of their questions have been answered. cc: Jose Guthrie MD MTDD
[2019-05-16] MEDS: MORPHINE IV PRN ×2 (11:12→20:36)
[2019-05-16] MEDS ORDERED: LOVENOX SUBQ ONE (11:15)
--- NOTE | 2019-05-16 12:58 | ECHO REPORT ---
ORDER DATE: 05/16/2019 INDICATION: Elevated proBNP. Shortness of breath. Cocaine abuse. Hypotension. FINDINGS: 1. The right atrium is mildly enlarged. 2. Mild tricuspid regurgitation. RV systolic pressure of 33. 3. The right ventricle is dilated with a reduced RV systolic function. 4. No significant pulmonic insufficiency. 5. Mild left atrial enlargement with a volume index of 30. 6. No mitral valve prolapse. Mild mitral regurgitation. No mitral stenosis. 7. Dilated left ventricle with an end-diastolic dimension of 6.1 cm. Normal wall thicknesses with a posterior and interventricular septal wall thickness of 0.7 and 1.1 cm respectively. Severely reduced LV systolic function with an estimated EF of 10 to 15 percent with severe global hypokinesis. 8. The aortic valve opens well. No evidence of stenosis or insufficiency. 9. The aorta appears normal in visualized segments. 10. No pericardial effusion seen. 11. The IVC is dilated with minimal collapse. cc: MD Dom Pittman MD
--- NOTE | 2019-05-16 14:45 | Diag Imaging Result Doc PS360 ---
EXAM: CT THORAX/ABD/PELVIS W/O CON 05/16/2019 HISTORY: acute dyspnea, sepsis TECHNIQUE: This exam was performed using automated exposure control, adjustment of mA or kV according to patient size, and/or use of iterative reconstruction technique. COMMENT: Thorax: There are no previous abdominal studies available for comparison. Comparison with the previous thoracic study of 08/06/2015. There has been no significant change in the appearance of the mediastinum or toni. There are calcified nodes in the left hilum. There are no abnormal fluid collections. There is ill-defined opacity in the right lower lobe which is worse than on the previous study. There is some fibrosis or atelectasis present in the left costophrenic angle which was largely present previously. There are some emphysematous changes. No acute bony abnormalities are present. Abdomen/pelvis: There is some fluid in the stomach. There is a small punctate calcifications dependently in the gallbladder. There is apparent marked gallbladder wall thickening. There is no evidence of nephrolithiasis or hydronephrosis. There are atherosclerotic calcifications of the aorta without evidence of dilatation. The appendix is normal in appearance. There is a small amount of free fluid in the pelvis. There is some stool in the colon. There are bone islands in the right femoral head. The regional skeleton appears to be intact otherwise. IMPRESSION: 1. Minimal right lower lobe bronchopneumonia. 2. Cholelithiasis and possible cholecystitis. Nonspecific free pelvic fluid. Electronically signed by Madhu Romero 05/16/2019 2:43 PM
[2019-05-16 16:22] LABS: AGAP 14; BUN 12 mg/dL (8-22); CALCIUM 8.5 mg/dL (8.8-10.2); CHLORIDE 100 mmol/L (98-107); COSMO 272; CREATININE 0.9 mg/dL (0.7-1.2); ESTIMATED GFR > 60; GLUCOSE 129 mg/dL (70-104); POTASSIUM 4.4 mmol/L (3.5-5.1); SODIUM 135 mmol/L (136-145); TCO2 21 mmol/L (25-35)
--- NOTE | 2019-05-16 17:37 | CARDIOLOGY CONSULTATION ---
DATE: 05/16/2019 CONSULTATION REQUESTED BY: Hospitalist service. REASON FOR CONSULTATION: Elevation of troponin levels, question of myocardial infarction. Abnormal EKG. HISTORY: Mr. Chu is a 53-year-old black gentleman who presented to the emergency room yesterday at 10:39 p.m. with complaints of increasing dyspnea, pleuritic type of chest pain, and cough productive of green phlegm. Upon presentation, they did the usual testing including a chest x-ray that showed no acute abnormality and a 12- lead EKG that shows sinus rhythm with a nonspecific T-wave in the precordial leads. He has LVH. Subsequent EKG a few hours later showed sinus rhythm with a precordial T-wave inversion. The patient has been placed on broad-spectrum antibiotics including ceftriaxone and has been given methylprednisolone and piperacillin. His troponin was initially 176 ng/L, subsequently 129, and then the final one was 87 ng/L this morning at 6 a.m. His proBNP was 13,102 pg/mL. The patient is feeling better. He says that he has poor appetite. He is quite skinny. He weighs 131 pounds. His BMI is 16.4, which indicates that he is underweight. He has not experienced nausea, vomiting, syncope, or palpitations. He is has no edema. He is very weak. Of note, his toxic drug screen indicates the presence of cocaine and cannabinoids in his urine. His flu testing is negative. MEDICAL HISTORY: He apparently has been using drugs for a while. Question of COPD. SURGICAL HISTORY: He has had previous hand surgery. SOCIAL HISTORY: He is unemployed, , a smoker, and he admits to illicit substance use. FAMILY HISTORY: Noncontributory. ALLERGIES: Negative. CURRENT MEDICATIONS: He is not on any home medications. PRIMARY CARE PHYSICIAN: He does not have a primary doctor. REVIEW OF SYSTEMS: Noncontributory at this time. No prior cardiac history. PHYSICAL EXAMINATION: Vital signs: Blood pressure 113/84. It was lower earlier on. Temperature 96.7, pulse 90 per minute, respirations 22. The patient appears to be cachectic and emaciated, chronically ill. HEENT: Unremarkable. Chest: Diminished breath sounds diffusely without wheezes. Heart: Sounds are regular, rhythmic and distant. I do not hear a gallop or murmur. Abdomen: Nontender. Extremities: Show decreased pulses. No peripheral edema. Neuro: Follows commands. Moves 4 extremities. LABORATORY DATA: BUN 12, creatinine 1.3, sodium 137, potassium 4.2. IMPRESSION: 1. Patient who presents with basically an acute upper/lower respiratory infection, and in the midst of that they decided to do cardiac testing and they found positive troponins and elevation of proBNP. The significance of that is unclear. Question of a type 2 myocardial infarction., 2. Polysubstance abuse. Possibly side effect of cocaine. 3. Likely chronic obstructive pulmonary disease. 4. The patient is undernourished and underweight. BMI is 16.4. RECOMMENDATION: We will review an echocardiogram that has been requested. Basically at this time, we will probably need to just trend his cardiac enzymes. Because of his low body weight, he is at increased risk for bleeding from anticoagulants. He really needs to abstain from using tobacco products and of course illicit drugs. We will see what the echocardiogram shows and then will take it from there. He is not a candidate for stress testing at this time, nor invasive cardiac evaluation. We will see how he progresses over the next few days. cc: Raphael Naranjo MD
--- NOTE | 2019-05-16 18:12 | GENERAL SURGERY CONSULTATION ---
DATE: 05/16/2019 HISTORY OF THE PRESENT ILLNESS: Mr. Chu is 53 years old, was admitted early this morning with chest and abdominal pain. He reports having some abdominal symptoms for the past couple of weeks. Because of his symptoms, he sought medical attention late last night. He does report having some diarrhea as well. His CT scan shows acute cholecystitis and possible some minimal bronchopneumonia. PAST MEDICAL HISTORY: Is pertinent for COPD. SOCIAL HISTORY: Drinks alcohol. Smokes cigarettes. He uses illicit drugs. PAST SURGICAL HISTORY: Previous surgery includes tendon repair on the right hand apparently due to a Dupuytren's contracture. MEDICATIONS: He has no known medications at home. ALLERGIES: Has no known drug allergies. FAMILY HISTORY: Pertinent for diabetes and hypertension. REVIEW OF SYSTEMS: As noted above. All of the subsystems are negative. All 10 subsystems are negative. PHYSICAL EXAMINATION: Vital signs: His temperature is 98.2 degrees, heart rate 98, blood pressure 113/82. Neck: He has no cervical adenopathy. Chest: Bilateral breath sounds. Heart: Regular rate and rhythm. Abdomen: Soft. He is tender in the right upper quadrant. Extremities: Femoral pulses are present. He has dorsalis pedis pulses as well. Neurological: He is awake, alert and oriented. Has good strength in all extremities. LABORATORY DATA: Reveals a white count of 16,900, hemoglobin 13.6, hematocrit 38.2. His total bilirubin is 2, AST 123, ALT 123, alkaline phosphatase 127. His troponin level was high. ProBNP is 13,102. Plasma lactate was 2.9 when he came in, 2.6 most recently. ASSESSMENT: Acute cholecystitis. This is evidenced on his CT scan and his liver tests. He may have had a non ST elevation myocardial infarction as well. He has been evaluated by the framing inspector. PLAN: The plan will be for a cholecystectomy if permissible by the framing inspector. I have discussed this with him. Discussed the benefits, risks. He understands. He would like to proceed. cc: Jimmy Hsieh MD
--- NOTE | 2019-05-16 18:36 | PROGRESS NOTE ---
DATE: 05/16/2019 INTERVAL HISTORY: I evaluated cardiology team's recommendation. I also looked at the echocardiogram. The patient has congestive heart failure with ejection fraction of 10% to 15%. This could be in the setting of his long-standing recreational substance abuse. Echocardiogram has dilated cardiomyopathy with global hypokinesia, so acute coronary syndrome is less likely. Considering his acute cholecystitis, I have consulted surgical team as well. I will keep him on broad-spectrum intravenous antibiotics and follow up with blood culture results. Considering his severe cardiomyopathy, I will appreciate Cardiology team's recommendation for preoperative clearance. cc: Jose Guthrie MD
--- NOTE | 2019-05-16 20:30 | Diag Imaging Result Doc PS360 ---
EXAM: US ABDOMEN-COMPLETE 05/16/2019 HISTORY: abnormal lfts TECHNIQUE: Abdominal ultrasound COMMENT: The pancreatic head is normal in appearance remainder is not well seen. The visualized portions of the aorta and inferior vena cava are within normal limits. The liver is slightly hyperechoic. There is a 6 mm stone in the gallbladder. There is pericholecystic fluid but no sonographic Elizabeth sign. Common bile duct is slightly dilated at almost 8 mm. The kidneys are without evidence of hydronephrosis or mass. The spleen is not well seen. There is antegrade flow in the portal vein. IMPRESSION: Cholelithiasis and pericholecystic fluid. This was also demonstrated on the recent CT of 05/16/2019. It was not present on 05/27/2012. The possibility of cholecystitis and choledocholithiasis cannot be entirely excluded, despite the absence of a sonographic Elizabeth sign. Electronically signed by Madhu Romero 05/16/2019 8:27 PM
[2019-05-17] MEDS: NS 1,000 ML IV SCH (00:01)
[2019-05-17] MEDS: DUONEB (A & A) INH SCH ×2 (00:20→06:08)
[2019-05-17] MEDS: MORPHINE IV PRN ×4 (02:20→22:57)
[2019-05-17] MEDS: ZOSYN 3.375 GM in NS 50 ML IV SCH ×4 (02:22→20:58)
[2019-05-17] MEDS: ZYVOX 600 MG/D5W 600 MG/300 ML IVPB IV SCH ×2 (02:22→13:38)
[2019-05-17] MEDS: PRILOSEC PO SCH (06:35)
[2019-05-17 06:45] LABS: BASO# 0.02 X1000 (0.0-0.2); BASO% 0.1 % (0.0-0.8); EOS# 0.03 X1000 (0.0-0.7); EOS% 0.2 % (0.0-10.0); HEMATOCRIT 34.2 % (42.0-52.0); HEMOGLOBIN 12.2 g/dL (14.0-18.0); IMM GRAN# 0.06 X1000 (0.0-0.04); IMM GRAN% 0.3 % (0.0-0.5); LYMPH# 3.27 X1000 (1.2-3.4); LYMPH% 18.6 % (20.5-51.1); MCH 33.2 PG (27-31); MCHC 35.7 g/dL (33-37); MCV 93.2 FL (81-99); MONO% 6.3 % (1.7-9.3); MPV 12.6 FL (7.4-10.4); NEUT# 13.06 X1000 (1.4-6.5); NEUT% 74.5 % (42.2-75.2); PLT 96 X1000 (130-400); RBC 3.67 XMIL (4.7-6.1); RDW 13.4 % (11.5-14.5); WBC 17.54 X1000 (4.8-10.8)
[2019-05-17 06:55] LABS: HEMOGLOBIN A1C 4.7 % (4.8-6.0)
[2019-05-17 06:57] LABS: AGAP 13; ALBUMIN 3.2 g/dL (3.5-5.0); ALKALINE PHOSPHATASE 79 U/L (32-122); BUN 14 mg/dL (8-22); CALCIUM 8.5 mg/dL (8.8-10.2); CHLORIDE 98 mmol/L (98-107); CHOLESTEROL 147 mg/dL (0-200); COSMO 270; ESTIMATED GFR > 60; GLUCOSE 117 mg/dL (70-104); GOT 68 U/L (10-34); GPT 66 U/L (10-44); HDL 81 mg/dL (35-55); IRON SATURATION 48 %; LDL 52 mg/dL; MAGNESIUM 1.8 mg/dL (1.5-2.7); PHOSPHORUS 1.9 mg/dL (2.7-4.5); POTASSIUM 3.9 mmol/L (3.5-5.1); SODIUM 134 mmol/L (136-145); TCO2 23 mmol/L (25-35); TIBC 185 ug/dL; TOTAL BILIRUBIN 1.05 mg/dL (0.20-1.00); TOTAL IRON 89 ug/dL (53-167); TOTAL PROTEIN 6.3 g/dL (6.3-8.3); TRIGLYCERIDES 71 mg/dL (39-160); UNBOUND IRON 96 ug/dL (112-346); VLDL 14 mg/dL
--- NOTE | 2019-05-17 07:07 | Diag Imaging Result Doc PS360 ---
EXAM: CHEST-PORTABLE 05/17/2019 HISTORY: dyspnea TECHNIQUE: AP portable at 0545 COMMENT: The inspiration is less optimal than on 05/15/2019. There is no evidence of acute cardiac or pulmonary disease. IMPRESSION: No acute disease. Electronically signed by Madhu Romero 05/17/2019 7:04 AM
[2019-05-17] MEDS: FOLIC ACID PO SCH (08:10)
[2019-05-17] MEDS: VITAMIN B-1 PO SCH (08:10)
[2019-05-17] MEDS: LIPITOR PO SCH (08:10)
[2019-05-17] MEDS: CENTRUM SILVER PO SCH (08:10)
[2019-05-17] MEDS: ASPIRIN PO SCH (08:10)
[2019-05-17 08:27] LABS: FERRITIN 7064 ng/mL (30-400)
--- NOTE | 2019-05-17 09:39 | EKG Report ---
Test Performed on : 05/17/2019 07:03:11 AM Test Reason : dyspnea Blood Pressure : / mmHG Vent. Rate : 083 BPM Atrial Rate : 083 BPM P-R Int : 158 ms QRS Dur : 106 ms QT Int : 468 ms P-R-T Axes : 069 066 236 degrees QTc Int : 549 ms Normal sinus rhythm. Voltage criteria for left ventricular hypertrophy ST elevation, consider early repolarization, pericarditis, or injury T wave abnormality, consider inferior ischemia T wave abnormality, consider anterior ischemia Nonspecific ST and T wave abnormality Lateral leads Prolonged QT Abnormal ECG When compared with ECG of 16-MAY-2019 09:53, (Unconfirmed) Inverted T waves have replaced nonspecific T wave abnormality in Inferior leads Nonspecific T wave abnormality, improved in Lateral leads Confirmed by Alex Ge MD ([id number]) on 05/17/2019 11:04:12 AM
[2019-05-17] MEDS: DUONEB (A & A) INH PRN ×2 (10:11→16:30)
[2019-05-17 10:32] LABS: URINE SOURCE CATH
[2019-05-17 10:40] LABS: BILIRUBIN URINE NEGATIVE (NEGATIVE); BLOOD URINE SMALL (NEGATIVE); COLOR YELLOW; GLUCOSE URINE NEGATIVE (NEGATIVE); KETONE URINE TRACE mg/dL (NEGATIVE); LEUKOCYTES URINE NEGATIVE (NEGATIVE); NITRITE URINE NEGATIVE (NEGATIVE); PROTEIN URINE 30 mg/dL (NEGATIVE); SP GRAVITY URINE 1.034; TURBIDITY URINE HAZY (CLEAR); UROBILINOGEN URINE NORMAL (NORMAL)
[2019-05-17 10:41] LABS: UR EPITHELIAL CELLS <10 /HPF (<10); URINE BACTERIA NEGATIVE /HPF; URINE RBC <10 /HPF (<10); URINE WBC <10 /HPF (<10)
--- NOTE | 2019-05-17 11:16 | PROGRESS NOTE ---
DATE: 05/17/2019 INTERVAL HISTORY: His echocardiogram had ejection fraction of [address] scan of the abdomen and pelvis had cholecystitis. Surgical team and Cardiology team on board. SUBJECTIVE: Mr. Chu is feeling much better today than before. He denies any more chest pain at the moment. He denies feeling short of breath. He is occasionally coughing which is nonproductive. He denies any more nausea or vomiting. His abdominal pain has become significantly better. He states he has been making urine. He has not had any bowel movement by the time I evaluated him. We discussed about cholecystitis, congestive heart failure, abstinence for recreational substances. I answered all of his questions. VITAL SIGNS: He is afebrile. He is not tachycardic. His blood pressure of 113/85, temperature 98.4 degrees, pulse 80, saturating 98% on room air, respiratory rate of 22. PHYSICAL EXAMINATION: General: Not in any acute distress. Oral cavity is moist. Lungs: Air entry bilaterally equal. No wheeze, rhonchi, or crackles. Cardiovascular: S1, S2 normal. No murmur, rub or gallop. Abdomen: Soft. Decreased tenderness in the right upper quadrant as compared to previous examination without any guarding, rigidity, or rebound. Negative Elizabeth sign today. Active bowel sounds. Extremities: No lower extremity edema. Genitourinary: He does not have urine catheter. He refused to get a Bingham catheter yesterday. Neurologic: He is alert and oriented x3. LABORATORY [place] [address], hemoglobin 12.2, platelet 96,000. BUN of 14, creatinine of 1. He does not have any iron deficiency. His liver function tests are trending down. Troponin yesterday was showing a downward trend. MICROBIOLOGY: No new data. IMAGING: Chest x-ray this morning did not have any acute disease. Chest, abdomen and pelvis CT yesterday had minimal right lower lobe bronchopneumonia, cholelithiasis and possible cholecystitis, nonspecific free pelvic fluid. Abdomen ultrasound had cholelithiasis, pericholecystic fluid and possibility of cholecystitis could not be excluded. Echocardiogram had ejection fraction of 10 to 15 percent with severe global hypokinesia. ASSESSMENT AND PLAN: 1. Septic shock, likely from acute cholecystitis, though he has right lower lobe bronchopneumonia, it is not very impressive. Follow up final blood culture results. He has not been able to make sputum. Continue intravenous linezolid and intravenous Zosyn and tailor antibiotics according to culture and sensitivity. He was resuscitated with intravenous fluids considering congestive heart failure. I will withhold any more IV fluids at the moment. 2. Acute cholecystitis. His liver function tests are trending down. I will continue intravenous antibiotics and will follow up further surgical recommendations. 3. Acute systolic congestive heart failure with global hypokinesia, suspected non ST-elevation myocardial infarction versus type 2 myocardial infarction due cocaine-induced coronary vasospasm. He continues to have T-wave inversions. I will keep him on aspirin, high-dose atorvastatin and enoxaparin on prophylactic dose. Appreciate Cardiology team's recommendation. He is not any short of breath and does not suggest any signs of volume overload at the moment. This could be in the setting of polysubstance abuse including alcohol and recreational substances versus other etiology. 4. Acute liver failure and acute kidney injury, likely in the setting of septic shock, now improving. Follow up liver function tests, hepatitis panel. 5. Polysubstance abuse including alcohol, tobacco, cocaine, cannabis. He was counseled about stopping these substances. He is in agreement. 6. Others. Continue omeprazole for gastroesophageal reflux disease, thiamine for alcohol use disorder with folic acid and multivitamins, nicotine patch for tobacco abuse. I will also get a repeat EKG and stat troponin since his morning EKG had less than [address]-segment elevations on V5, V6 chest leads. DISPOSITION: I will continue monitor patient in ICU. TIME SPENT: 35 minutes were spent in taking care of this critically ill patient. The patient's brother was also at bedside. All of the patient's questions have been answered. cc: Jose Guthrie MD
--- NOTE | 2019-05-17 14:01 | GENERAL SURGERY PROGRESS NOTE ---
DATE: 05/17/2019 Mr. Chu feels okay this morning. He is afebrile. Heart rate 80, blood pressure 113/85. He still is mildly tender in the right upper quadrant. His white count went up to 17,500. His bilirubin is down to 1. AST, ALT, and alkaline phosphatase all are improved today. We do believe he has acute cholecystitis. Unfortunately, he also has some diminished cardiac function. We will plan to proceed with laparoscopic cholecystectomy if okay by Cardiology. cc: Jimmy Hsieh MD
--- NOTE | 2019-05-17 14:52 | GENERAL SURGERY PROGRESS NOTE ---
DATE: 05/17/2019 SUBJECTIVE: Cardiology has evaluated him and feels that his heart needs to be treated for a few days since he has had no cardiac therapy in the past. The risks right now of surgery exceed the benefits, so we will postpone his surgery. I have discussed that with him in hopes that we can improve his cardiac function somewhat. If he clinically deteriorates we may be forced to proceed, but for now we will postpone his surgery. cc: Jimmy Hsieh MD
[2019-05-18] MEDS: ZOSYN 3.375 GM in NS 50 ML IV SCH ×4 (04:21→20:07)
[2019-05-18] MEDS: ZYVOX 600 MG/D5W 600 MG/300 ML IVPB IV SCH ×2 (04:21→13:56)
[2019-05-18] MEDS: MORPHINE IV PRN ×3 (04:22→20:07)
[2019-05-18] MEDS: PRILOSEC PO SCH (06:14)
[2019-05-18 07:05] LABS: BASO# 0.03 X1000 (0.0-0.2); BASO% 0.3 % (0.0-0.8); EOS# 0.13 X1000 (0.0-0.7); EOS% 1.1 % (0.0-10.0); HEMATOCRIT 32.4 % (42.0-52.0); HEMOGLOBIN 11.3 g/dL (14.0-18.0); IMM GRAN# 0.04 X1000 (0.0-0.04); IMM GRAN% 0.3 % (0.0-0.5); LYMPH# 2.81 X1000 (1.2-3.4); LYMPH% 24.3 % (20.5-51.1); MCH 33.5 PG (27-31); MCHC 34.9 g/dL (33-37); MCV 96.1 FL (81-99); MONO# 1.02 X1000 (0.11-0.59); MONO% 8.8 % (1.7-9.3); MPV 12.5 FL (7.4-10.4); NEUT# 7.54 X1000 (1.4-6.5); NEUT% 65.2 % (42.2-75.2); PLT 92 X1000 (130-400); RBC 3.37 XMIL (4.7-6.1); RDW 13.8 % (11.5-14.5); WBC 11.57 X1000 (4.8-10.8)
[2019-05-18 07:33] LABS: AGAP 14; ALB/GLOB RATIO 0.8; ALBUMIN 2.5 g/dL (3.5-5.0); ALKALINE PHOSPHATASE 70 U/L (32-122); BUN 8 mg/dL (8-22); CALCIUM 8.5 mg/dL (8.8-10.2); CHLORIDE 101 mmol/L (98-107); COSMO 268; CREATININE 0.9 mg/dL (0.7-1.2); ESTIMATED GFR > 60; GLUCOSE 117 mg/dL (70-104); GOT 60 U/L (10-34); GPT 49 U/L (10-44); SODIUM 134 mmol/L (136-145); TCO2 19 mmol/L (25-35); TOTAL BILIRUBIN 0.77 mg/dL (0.20-1.00); TOTAL PROTEIN 5.6 g/dL (6.3-8.3)
[2019-05-18 07:51] LABS: POTASSIUM 4.7 mmol/L (3.5-5.1)
--- NOTE | 2019-05-18 08:13 | PROGRESS NOTE ---
DATE: 05/18/2019 SUBJECTIVE: The patient reports feeling fine. Denies any chest pain. Denies any shortness of breath at rest. No acute issues noted as per nursing staff overnight. OBJECTIVE: Vital Signs: Temperature 98.4 degrees, heart rate 74, respiratory rate 18, blood pressure 104/50, O2 saturation 97% on room air. General Examination: This is a chronically ill- looking, 53-year-old, male, lying in bed, in no acute distress. Cardiovascular Examination: S1 and S2 heard. No murmurs, gallops, or rubs. Regular rate and rhythm. Respiratory Examination: Clear bilaterally to auscultation. No work of breathing or using accessory muscles. Abdomen: Soft. Mildly tender to palpation in the right upper quadrant. There are no signs of peritoneal irritation. Elizabeth's negative. Bowel sounds present. No organomegaly. Extremities: No clubbing, cyanosis, or edema. Peripheral pulses present in both legs. Neurological Examination: The patient is alert and oriented x3. Moves 4 extremities. Laboratory Data: White cell count 11.57, hemoglobin 11.3, hematocrit 32.4, platelets 92,000. Sodium 134, potassium is pending. Normal renal function. ASSESSMENT AND PLAN: 1. Septic shock, likely from acute cholecystitis and right lower lobe bronchopneumonia. The patient reports feeling fine. He is not requiring any vasopressors. The patient currently is on Zosyn and Zyvox. The results of the blood cultures are still pending. There is no growth for the 1st 48 hours. We will continue with the same management for now. 2. Acute cholecystitis. Considering his cardiac status with a very depressed ejection fraction of 10 to 15 percent with severe hypokinesis, surgery decided to postpone any further surgery until the patient is more stable. Cardiology is following this patient and we will wait for the clearance in order to proceed with cholecystectomy. Patient's liver function tests are getting better. We will continue with the same management. 3. Acute systolic congestive heart failure with global hypokinesia, suspected non-ST segment elevation myocardial infarction due to cocaine-induced coronary vasospasm. Cardiology is following this patient. Currently, he is on aspirin, high dose atorvastatin, Lovenox at prophylactic dose. At this point, cardiology is following this patient. We will recommendations from them. 4. Acute liver failure and acute kidney injury in the setting of septic shock. Renal function is completely back to normal and transaminase continues to recover. Total bilirubin is completely back to normal today. 5. Polysubstance abuse including alcohol, tobacco, cocaine, and cannabis. The patient was again counseled about quitting drugs. 6. Disposition. I think, at this point, this patient is critically ill with advanced heart disease and cholecystitis on top of that. I think we can move this patient to the PVC unit. cc: William Liriaon MD
--- NOTE | 2019-05-18 08:26 | EKG Report ---
Test Performed on : 05/18/2019 05:09:20 AM Test Reason : dyspnea Blood Pressure : / mmHG Vent. Rate : 069 BPM Atrial Rate : 069 BPM P-R Int : 164 ms QRS Dur : 102 ms QT Int : 510 ms P-R-T Axes : 030 049 195 degrees QTc Int : 546 ms Normal sinus rhythm. Moderate voltage criteria for LVH, may be normal variant ST & Marked T wave abnormality, consider anterior ischemia Prolonged QT Abnormal ECG When compared with ECG of 17-MAY-2019 07:03, No significant change was found Confirmed by Alex Ge MD ([id number]) on 05/18/2019 7:38:49 PM
[2019-05-18] MEDS: LIPITOR PO SCH (08:56)
[2019-05-18] MEDS: PRINIVIL PO SCH (08:56)
[2019-05-18] MEDS: FOLIC ACID PO SCH (08:56)
[2019-05-18] MEDS: ASPIRIN PO SCH (08:56)
[2019-05-18] MEDS: CENTRUM SILVER PO SCH (08:56)
[2019-05-18] MEDS: VITAMIN B-1 PO SCH (08:56)
[2019-05-18] MEDS: DUONEB (A & A) INH PRN ×2 (10:47→22:22)
--- NOTE | 2019-05-18 11:05 | GENERAL SURGERY PROGRESS NOTE ---
DATE: 05/18/2019 Mr. Chu seems to be doing generally well. He took his liquid satisfactorily yesterday. He is afebrile, heart rate 80, blood pressure 110/71. His white count has fallen to 11,600. His LFTs have improved to a normal bilirubin. AST is down to 60, ALT is down to 49, alkaline phosphatase is down to a normal level of 70. The plan will then be to go ahead and advance his diet. Then we will continue to delay any operative intervention to allow his heart to improve. cc: Jimmy Hsieh MD
[2019-05-18 13:06] LABS: HEPATITIS PROFILE ACUTE SEE COMMENTS
[2019-05-19] MEDS: ZYVOX 600 MG/D5W 600 MG/300 ML IVPB IV SCH ×2 (01:52→13:38)
[2019-05-19] MEDS: ZOSYN 3.375 GM in NS 50 ML IV SCH ×4 (01:52→20:07)
[2019-05-19] MEDS: MORPHINE IV PRN ×3 (01:53→20:07)
[2019-05-19] MEDS: PRILOSEC PO SCH (06:28)
--- NOTE | 2019-05-19 06:35 | PROGRESS NOTE ---
DATE: 05/19/2019 SUBJECTIVE: The patient reports feeling fine, some heartburn noted after he ate some spicy food brought from outside by some friends. Denies any chest pain, or any difficulty in breathing. No acute issues noted as per nursing staff overnight. OBJECTIVE: Vital Signs: Temperature 98.4 degrees, heart rate 77, respiratory 16, blood pressure 114/73, and O2 saturation 98% on room air. General: This is a chronically ill-looking 53-year- old male lying in bed in no acute distress. Cardiovascular: S1, S2 heard. No murmurs, gallops, or rubs. Regular rate and rhythm. Respiratory: Clear bilaterally to auscultation. No work of breathing or using accessory muscles. Abdomen: Soft. Very mild tenderness to palpation noted in the right upper quadrant but there are no signs of peritoneal irritation. Elizabeth sign is negative. Bowel sounds present. No organomegaly. No clubbing, cyanosis, or edema. Peripheral pulses present in both legs. Neurological: The patient is alert and oriented x3. Moves all 4 extremities. LABORATORY DATA: Pending at the time of my dictation, but from yesterday white cell count is much better and is 11.57. ASSESSMENT AND PLAN: 1. Septic shock likely from acute cholecystitis and right lower lobe bronchopneumonia. Clinically, patient is doing fine. Pain is almost gone from the right upper quadrant, and also the patient is not requiring any oxygen supplementation and breathing okay. At presentation, he was requiring vasopressors but not any more. The patient is on Zyvox and Zosyn day #3 for both medications. Blood cultures continue to be pending, but no growth from the first 48 hours. At this point, we will continue with current management. 2. Acute cholecystitis. Clinically, this patient is doing okay. White cell count from yesterday is almost back to normal so I am expecting today to be normal not spiking any fever. Clinically, this patient is not complaining of any out of proportion right upper quadrant pain. General Surgery is following this patient planning to do surgery once the patient is cleared by Cardiology. 3. Acute systolic congestive heart failure with severe global hypokinesis suspected non ST- segment elevation myocardial infarction due to cocaine induced coronary vasospasm. Cardiology is following this patient. Echocardiogram here showed 10 to 15 percent ejection fraction. The patient currently continues to be on aspirin, high dose atorvastatin, and Lovenox prophylactic doses. Clinically, he reports feeding okay. No signs of volume overload. X-ray from 2 days ago did not show any cardiac or pulmonary disease so we will continue with current management. 4. Acute liver failure and acute kidney injury in the setting of septic shock. Renal function is completely resolved. The liver function test continues normalize. We will continue to monitor. 5. Polysubstance abuse including alcohol, tobacco, cocaine and marijuana. Patient continues to be counseled about abusing recreational drugs. 6. Disposition. At this point, the patient has an order for transfer to [facility]. The patient has cholecystitis and requiring surgery, but first he needs to be cleared by Cardiology. At this point, we will continue to monitor. cc: William Liriano MD MTDD
[2019-05-19 06:58] LABS: AGAP 9; ALBUMIN 2.8 g/dL (3.5-5.0); BUN 5 mg/dL (8-22); CALCIUM 8.4 mg/dL (8.8-10.2); CHLORIDE 101 mmol/L (98-107); COSMO 269; CREATININE 0.9 mg/dL (0.7-1.2); ESTIMATED GFR > 60; GLUCOSE 103 mg/dL (70-104); PHOSPHORUS 2.7 mg/dL (2.7-4.5); POTASSIUM 3.5 mmol/L (3.5-5.1); SODIUM 136 mmol/L (136-145); TCO2 26 mmol/L (25-35)
[2019-05-19 07:01] LABS: BASO# 0.02 X1000 (0.0-0.2); BASO% 0.2 % (0.0-0.8); EOS# 0.19 X1000 (0.0-0.7); EOS% 1.8 % (0.0-10.0); HEMATOCRIT 31.6 % (42.0-52.0); HEMOGLOBIN 10.7 g/dL (14.0-18.0); IMM GRAN# 0.03 X1000 (0.0-0.04); IMM GRAN% 0.3 % (0.0-0.5); LYMPH# 2.31 X1000 (1.2-3.4); LYMPH% 21.7 % (20.5-51.1); MCH 32.2 PG (27-31); MCHC 33.9 g/dL (33-37); MCV 95.2 FL (81-99); MONO# 1.52 X1000 (0.11-0.59); MONO% 14.3 % (1.7-9.3); MPV 11.5 FL (7.4-10.4); NEUT# 6.59 X1000 (1.4-6.5); NEUT% 61.7 % (42.2-75.2); PLT 119 X1000 (130-400); RBC 3.32 XMIL (4.7-6.1); RDW 13.3 % (11.5-14.5); WBC 10.66 X1000 (4.8-10.8)
[2019-05-19 07:33] LABS: EOS 2 % (1-10); LYMPHS 26 % (21-51); MONO 10 % (1-9); SEGS 62 % (42-75)
[2019-05-19] MEDS: ASPIRIN PO SCH (08:20)
[2019-05-19] MEDS: PRINIVIL PO SCH (08:20)
[2019-05-19] MEDS: CENTRUM SILVER PO SCH (08:20)
[2019-05-19] MEDS: VITAMIN B-1 PO SCH (08:20)
[2019-05-19] MEDS: FOLIC ACID PO SCH (08:20)
[2019-05-19] MEDS: LIPITOR PO SCH (08:20)
[2019-05-19 11:46] LABS: IRON SATURATION 11 %; TIBC 185 ug/dL; TOTAL IRON 20 ug/dL (53-167); UNBOUND IRON 165 ug/dL (112-346)
[2019-05-19] MEDS: LOVENOX SUBQ SCH ×2 (11:48→13:39)
--- NOTE | 2019-05-19 12:29 | CARDIOLOGY PROGRESS NOTE ---
DATE: 05/19/2019 CHIEF COMPLAINT: Weakness, shortness of breath. SUBJECTIVE: Mr. Chu is feeling somewhat upset because of the recent disclosure of abnormal tests including hepatitis B. He denies having chest pain. Breathing is more normal. OBJECTIVE: Blood pressure is 125/69, temperature 97.9, respirations 18, pulse 70. He is awake, alert and oriented, in no distress. HEENT is unremarkable. Chest sounds clear to auscultation and percussion. Heart sounds are regular and rhythmic. I do not hear a gallop or murmur. His abdomen is nontender. His extremities showed no edema. Neurologic: Follows commands, moves all 4 extremities. DIAGNOSTIC DATA: His blood work today shows hemoglobin 10.7, hematocrit 31.6, white cell count 10,660. Sodium is 136, potassium 3.5, BUN is 5, creatinine 0.9. His iron, interestingly, today has come down to 20. His saturation is only 11%. That does not make a whole lot of sense when compared to prior blood work from 05/17/2019. His telemetry showed no arrhythmia. IMPRESSION: 1. The patient has systolic congestive heart failure. His echocardiogram from 05/16/2019 shows ejection fraction of 10% to 15%. This is probably either a toxic related cardiomyopathy, like from cocaine use and toxic drugs, versus idiopathic. 2. The patient is with hepatitis B positive. 3. Chronic obstructive pulmonary disease. 4. Underweight. 5. Markedly elevated ferritin level. Question of iron storage disease given the low ejection fraction. 6. ?non ST NM. likely 2ry to systemic process. 7. Lower respiratory tract infection/pneumonia? RECOMMENDATIONS: Because the patient has a combination of multiorgan dysfunction including liver dysfunction and inflammatory process and drug use, I have recommended an evaluation by furnace checker specifically to analyze the liver dysfunction and give us some hints as to whether or not further investigation is required. I do not recommend to operate on his abnormal gallbladder yet until we know for sure if his liver function is stable, since general anesthesia could precipitate liver failure. Cardiac driscoll, I would suggest to delay the operation until his chest x-ray and his gas exchange is acceptable or basically back to normal. Further advice will be forthcoming. cc: Raphael Naranjo MD [facility]ITALCameron
[2019-05-19 12:33] LABS: FERRITIN 2805 ng/mL (30-400)
--- NOTE | 2019-05-19 14:08 | GENERAL SURGERY PROGRESS NOTE ---
DATE: 05/19/2019 Mr. Chu is afebrile, heart rate 70, blood pressure 125/69. He says his abdomen hurts less. He is tolerating solid food. White count is down to 10,700. We did not have any LFTs today, but his liver tests have improved since admission. His heart dysfunction is too severe to consider surgery at this time. Perhaps he will continue to improve and avoid surgery with antibiotic therapy. He certainly is looking better from that perspective. We will continue to follow along. cc: Jimmy Hsieh MD
--- NOTE | 2019-05-19 15:30 | GASTROENTEROLOGY CONSULTATION ---
DATE: 05/19/2019 REASON FOR CONSULT: Hepatitis B. HISTORY OF PRESENT ILLNESS: Mr. Chu is a 53-year-old male who has a history of COPD, polysubstance abuse, marijuana, cocaine, tobacco abuse, and alcohol abuse. He came into the hospital on 05/16/2019 with complaints of cough, shortness of breath, nausea, vomiting, chest pain and abdominal pain, rating it as 10/10 in the right upper quadrant, describing it as cramping pain. His blood pressure on admission was low. The patient currently has denied any chest pain or difficulty breathing. The patient's chest x-ray on 05/15/2019 had shown that he had no acute abnormality. His echocardiogram showed an ejection fraction of 10% to 15% with severe global hypokinesis. The patient's abdominal ultrasound had shown cholelithiasis and pericholecystic fluid. His chest, abdomen and pelvis CT has shown that he has minimal right lower lobe bronchopneumonia, cholelithiasis and possible cholecystitis; nonspecific free pelvic fluid. The patient's hepatitis profile has shown that his hepatitis B surface antigen was reactive. Hepatitis B surface antigen confirmation was reactive. Hepatitis B core antibody was nonreactive. Hepatitis C antibody was nonreactive. Hepatitis A viral antibody was nonreactive. PAST MEDICAL HISTORY: COPD, alcohol abuse, tobacco abuse, illicit drug abuse. ALLERGIES: No known drug allergies. PAST SURGICAL HISTORY: Surgery on the right hand. SOCIAL HISTORY: The patient is single and has three kids. Smokes one pack of cigarettes daily. Drinks alcohol, six beers daily. Consumes marijuana on a daily basis and sometimes has cocaine. FAMILY HISTORY: Is significant for blood pressure and diabetes. HOME MEDICATIONS: Need to be reconciled. REVIEW OF SYSTEMS: As per HPI. Otherwise, 12 point review of systems is negative. PHYSICAL EXAMINATION: Vital Signs: Temperature 97.9, pulse 70, respirations 18, blood pressure 125/69, oxygen saturation 98% on room air. Weight is 131. BMI is 15.4 kg per m2. General: He is alert, oriented x3, in no acute distress. Answering questions appropriately. HEENT: Pale conjunctivae. No icterus. PERRLA. Neck: Supple. Lungs: Clear to auscultation. Cardiovascular: Regular rate and rhythm. Abdomen: Soft. Tender in the right abdomen. Active bowel sounds heard in all four quadrants. Extremities: No clubbing, no cyanosis, no edema. Pedal pulses 2+ present bilaterally. Neurologic: Alert and oriented x3. Nonfocal. Cranial nerves II_XII grossly intact. LABS: WBCs are 10.66, RBCs 3.32, hemoglobin is 10.7, hematocrit is 31.6, platelet count is 119,000. Sodium 136, potassium 3.5, chloride 101, carbon dioxide 26, anion gap 9, BUN 5, creatinine 0.9, glucose 103, calcium 8.4, phosphorus 2.7, magnesium 20. Iron is 20, TIBC is 185, ferritin is 2805. Total bilirubin 0.77, AST 60, ALT 49, alkaline phosphatase 70. Patient's vitamin B12 is 1094. Urinalysis on 05/16/2018 showed protein of 30, trace of ketones, small amount of blood. His toxicology report has shown that he is presumptive positive for urine cocaine and presumptive positive for cannabinoids. IMAGING: The patient's abdominal ultrasound had shown he had cholelithiasis and pericholecystic fluid. His chest, abdomen and pelvis CT has shown that he has minimal right lower lobe bronchopneumonia, cholelithiasis and possible cholecystitis; nonspecific free pelvic fluid. IMPRESSION AND PLAN 1. Elevated liver enzymes. 2. Positive hepatitis B surface antigen. 3. Cardiomyopathy. 4. Elevated ferritin and percent iron saturation. 5. Urine tox screen positive for Cocaine and Marijuana 6. Anemia 7. H/o COPD 8. Cholecystitis being followed by surgeons and surgery on hold because of Cardiomyopathy. PLAN: Mr. Chu is a 53-year-old male with a history of chronic obstructive pulmonary disease. The patient is in the Intensive Care Unit. The patient has been diagnosed with congestive heart failure with an ejection fraction between 10% and 15%. His hepatitis B profile antigen has been reactive. GI has been consulted for his hepatitis B. We have ordered labs to check his alpha-1 antitrypsin, AMA, ceruloplasmin, hemochromatosis genotype and hepatitis B DNA quantitative by PCR. The patient is currently receiving antibiotics of Zosyn and Zyvox for cholecystitis. He is on PPIs daily. The patient is on multivitamin, folic acid, thiamine. Awaiting for his lab results. We will continue to monitor the patient and provide supportive are. Will follow the plan of care per PCP and surgeon. This plan was discussed with Dr. Ribeiro. continue to monitor the patient and follow the plan of care. Thank you for your consult. Please call us for any further questions or concerns. Dictated by PHILIPPE Snow for Martinez Ribeiro MD cc: Martinez Ribeiro MD I have seen and examined the patient myself and I agree with the above plan of care. Please call us with any further questions or concerns. PAMELA
[2019-05-20] MEDS: ZOSYN 3.375 GM in NS 50 ML IV SCH ×4 (02:45→21:04)
[2019-05-20] MEDS: ZYVOX 600 MG/D5W 600 MG/300 ML IVPB IV SCH ×2 (03:19→13:44)
[2019-05-20] MEDS: MORPHINE IV PRN ×4 (03:20→21:18)
[2019-05-20] MEDS: PRILOSEC PO SCH ×2 (05:46→06:23)
[2019-05-20 06:12] LABS: BASO# 0.02 X1000 (0.0-0.2); BASO% 0.2 % (0.0-0.8); HEMOGLOBIN 10.4 g/dL (14.0-18.0); MCV 95.7 FL (81-99)
[2019-05-20 06:44] LABS: AGAP 9; ALBUMIN 2.9 g/dL (3.5-5.0); BUN 5 mg/dL (8-22); CALCIUM 8.4 mg/dL (8.8-10.2); CHLORIDE 102 mmol/L (98-107); COSMO 278; CREATININE 0.8 mg/dL (0.7-1.2); ESTIMATED GFR > 60; GLUCOSE 124 mg/dL (70-104); POTASSIUM 3.5 mmol/L (3.5-5.1); SODIUM 140 mmol/L (136-145); TCO2 29 mmol/L (25-35)
[2019-05-20 07:49] LABS: EOS# 0.31 X1000 (0.0-0.7); EOS% 3.2 % (0.0-10.0); HEMATOCRIT 31.1 % (42.0-52.0); IMM GRAN# 0.04 X1000 (0.0-0.04); IMM GRAN% 0.4 % (0.0-0.5); LYMPH# 2.83 X1000 (1.2-3.4); LYMPH% 29.4 % (20.5-51.1); MCHC 33.4 g/dL (33-37); MONO% 15.6 % (1.7-9.3); MPV 11.6 FL (7.4-10.4); NEUT# 4.92 X1000 (1.4-6.5); NEUT% 51.2 % (42.2-75.2); PLT 138 X1000 (130-400); RBC 3.25 XMIL (4.7-6.1); RDW 13.5 % (11.5-14.5); WBC 9.62 X1000 (4.8-10.8)
[2019-05-20 07:58] LABS: ALB/GLOB RATIO 1.1; ALBUMIN 2.9 g/dL (3.5-5.0); DIRECT BILIRUBIN 0.2 mg/dL (0.00-0.20); TOTAL BILIRUBIN 0.45 mg/dL (0.20-1.00); TOTAL PROTEIN 5.5 g/dL (6.3-8.3)
[2019-05-20 08:28] LABS: EOS 2 % (1-10); LYMPHS 37 % (21-51); MONO 12 % (1-9); SEGS 47 % (42-75)
--- NOTE | 2019-05-20 08:31 | Diag Imaging Result Doc PS360 ---
EXAM: CHEST-2 VIEWS HISTORY: pulmonary edema TECHNIQUE: Two views COMPARISON: 05/17/2019 FINDINGS: The lungs are hyperexpanded. Increased AP diameter to the chest. The pulmonary vessels are small. There are tiny pleural effusions. No consolidation. The heart is borderline mildly prominent. IMPRESSION: 1.Emphysema 2.Tiny pleural effusions, but no pulmonary edema. Electronically signed by Houston Acosta 05/20/2019 8:28 AM
[2019-05-20] MEDS: LOVENOX SUBQ SCH (09:06)
[2019-05-20] MEDS: CENTRUM SILVER PO SCH (09:06)
[2019-05-20] MEDS: FOLIC ACID PO SCH (09:06)
[2019-05-20] MEDS: ASPIRIN PO SCH (09:06)
[2019-05-20] MEDS: PRINIVIL PO SCH (09:06)
[2019-05-20] MEDS: VITAMIN B-1 PO SCH (09:06)
[2019-05-20] MEDS: LIPITOR PO SCH (09:06)
[2019-05-20] MEDS: DUONEB (A & A) INH PRN ×2 (10:12→15:20)
--- NOTE | 2019-05-20 10:15 | PROGRESS NOTE ---
DATE: 05/20/2019 SUBJECTIVE: Patient reports feeling fine. He is not having any shortness of breath or chest pain. No acute issues noted as per nursing staff overnight. OBJECTIVE: Vital Signs: Temperature 99.4 degrees, heart rate 76, respiratory rate 14, blood pressure 124/76, O2 saturation 99% on room air. General Examination: This is a chronically ill- looking, 53-year-old, -Dominican male, lying in bed, in no acute distress. Cardiovascular Examination: S1 and S2 heard. No murmurs, gallops, or rubs. Regular rate and rhythm. Respiratory Examination: Clear bilaterally to auscultation. No work of breathing or using accessory muscles. Abdomen: Soft. Nontender to palpation. Bowel sounds present. No organomegaly. No signs of peritoneal irritation. Elizabeth sign is negative. Extremities: No clubbing, cyanosis, or edema. Peripheral pulses present in both legs. Neurological Examination: The patient is alert and oriented x3. Moves 4 extremities. Laboratory Data: The white cell count is 9.62, with hemoglobin 10.4, hematocrit 31.1, platelets 138,000. Normal BMP. AST and ALT are normal, as well as bilirubin. ASSESSMENT AND PLAN: 1. Septic shock, likely from acute cholecystitis and right lower lobe bronchopneumonia. Clinically, this patient continues to improve. Regarding pneumonia, he is not requiring any oxygen supplementation. His white cell count is completely normal and he is not spiking any fever. The patient currently is on Zyvox and Zosyn, day #4 for both medications. Blood culture did not show any growth for the last 5 days, as well as the urine culture. At this point, we will continue with the same management. 2. Acute cholecystitis. Clinically, this patient is doing fine. No Elizabeth signs on the physical exam. General surgery is following this patient. We will follow recommendations. 3. Acute systolic congestive heart failure with severe global hypokinesis, suspected non ST- segment elevation myocardial infarction due to cocaine-induced coronary vasospasms. Cardiology is following this patient. They will wait for this patient to have a better gas exchange in order to consider letting this patient have surgery. At this point, the x-ray that we had done today did not show any pulmonary edema, just some lymphedema from his history of smoking. Patient is not requiring any oxygen supplementation. Also, the liver function tests are completely back to normal. At this point, we will see if they clear the patient for surgery. 4. Acute liver failure and acute kidney injury in the setting of septic shock. Both conditions are completely resolved. Liver functions are completely back to normal, transaminase and bilirubin. 5. Polysubstance abuse including alcohol, tobacco, cocaine, and marijuana. The patient has been counseled many times about stopping recreational drugs. 6. Hepatitis B. That was recently diagnosed. Considering the liver function tests, I think this patient probably has an infection that has resolved. We have, of course, checked viral load and many other tests. We will see what it shows. 7. Disposition. The patient is going to [facility] today to see how he does. As we mentioned before, he is not requiring any oxygen supplementation. His x-ray did not show any pulmonary edema so in case surgical intervention is needed to be done, I think this is the best time to do it, if okay with cardiology. cc: William Liriano MD
[2019-05-20 10:25] LABS: ALLEN TEST YES; BE 3.2 mmoll (-3.0-3.0); BLOOD TYPE ARTERIAL; HCO3-(ACT) 27.4 mmoll (20.0-26.0); METHB 1.2 % (0.0-1.5); O2(CT) 13.1 mL/dL (15.0-23.0); O2HB 95.2 % (95.0-99.0); PCO2(98.6) 42 mmHg (35-45); PO2(98.6) 87 mmHg (60-100); SAMPLE BLOOD; SAO2 98.6 % (95.0-100.0); THB 9.7 g/dL (11.5-17.4); pH(98.6) 7.43 (7.35-7.45)
[2019-05-20 10:28] LABS: MODALITY ROOM AIR
--- NOTE | 2019-05-20 12:32 | GASTROENTEROLOGY PROGRESS NOTE ---
DATE: 05/20/2019 SUBJECTIVE: Mr. Chu is a 53-year-old, male, resting in bed. The patient has denied any nausea, vomiting, but complains of abdominal pain in the right upper quadrant. The patient did have a couple of bowel movements yesterday, but has not had one today. OBJECTIVE: Vital Signs: Temperature 98.3 degrees, pulse 70, respirations 18, blood pressure 120/81, oxygen saturation 100% on room air. The patient's weight is 131 pounds, BMI is 16.4 kg/m2. General: He is alert and oriented x3, and in no acute distress. HEENT: Pale conjunctivae. No icterus. PERRL. Neck: Supple. Lungs: Clear to auscultation. Cardiovascular: Regular rate and rhythm. Abdomen: Soft, tender in the right upper quadrant. Active bowel sounds heard in all 4 quadrants. Extremities: No clubbing, no cyanosis, no edema. Pedal pulses 2+ present bilaterally. Neurologic: He is alert and oriented x3. IMAGING AND LABORATORY DATA: WBC is 9.62, RBC 3.25, hemoglobin 10.4, hematocrit 31.1, platelet count is 138,000. Sodium 140, potassium 3.5, chloride 105, carbon dioxide 29, anion gap 9, BUN 5, creatinine 0.8, glucose is 124, calcium is 8.4. Phosphorus 3.0. Total bilirubin is 0.45, AST 33, ALT is 37, alkaline phosphatase 61, albumin is 2.9. The patient's checks x-ray today showed emphysema and tiny pleural effusions, but no pulmonary edema. IMPRESSION AND PLAN: - Hepatitis B surface antigen positive - Acute cholecystitis - Pneumonia - Systolic CHF - Acute kidney injury - Acute liver injury - Anemia of chronic disease - Polysubstance abuse PLAN: Mr. Chu is a 53-year-old, male with a history of chronic obstructive pulmonary disease. GI is following him for his hepatitis B. The patient's liver enzymes have been within the normal limits. The patient is currently receiving antibiotic, Zosyn and Zyvox, for his cholecystitis. His surgery is on hold due his heart problems. He is on multivitamin, folic acid, thiamine and PPIs daily. We do not plan to do any procedures. The patient can follow us up as an outpatient for further workup of hepatitis B. We will sign off for now. Please call us for any further questions or concerns. This plan was discussed with Dr. Sherman. Dictated by PHILIPPE Snow for Romeo Sherman MD Physician Attestation I have seen and examined the patient. I have discussed and reviewed the note by Leora PAEZ and agree with findings and plan as documented. Patient does not have cirrhosis and LFTs are WNL. No indication for hepatitis B treatment as this time. Recommend outpatient follow-up. MTDD
[2019-05-20 12:37] LABS: HEPATITIS PROFILE ACUTE SEE COMMENTS
--- NOTE | 2019-05-20 15:49 | GENERAL SURGERY PROGRESS NOTE ---
DATE: 05/20/2019 Mr. Chu complains of more right upper quadrant pain today. He is afebrile with satisfactory hemodynamics. White count is 9600. Lactate 1.7. LFTs are down to normal. We will do a HIDA scan to see if his cystic duct is patent or not, which may help us decide about the necessity of operation. cc: Jimmy Hsieh MD
[2019-05-21] MEDS: ZYVOX 600 MG/D5W 600 MG/300 ML IVPB IV SCH ×2 (02:27→15:17)
[2019-05-21] MEDS: ZOSYN 3.375 GM in NS 50 ML IV SCH ×4 (02:27→21:29)
[2019-05-21 06:07] LABS: BASO# 0.03 X1000 (0.0-0.2); BASO% 0.3 % (0.0-0.8); EOS# 0.42 X1000 (0.0-0.7); EOS% 4.8 % (0.0-10.0); HEMATOCRIT 28.9 % (42.0-52.0); HEMOGLOBIN 9.7 g/dL (14.0-18.0); IMM GRAN# 0.03 X1000 (0.0-0.04); IMM GRAN% 0.3 % (0.0-0.5); LYMPH# 3.26 X1000 (1.2-3.4); LYMPH% 36.9 % (20.5-51.1); MCH 32.3 PG (27-31); MCHC 33.6 g/dL (33-37); MCV 96.3 FL (81-99); MONO# 1.25 X1000 (0.11-0.59); MONO% 14.2 % (1.7-9.3); MPV 10.7 FL (7.4-10.4); NEUT# 3.84 X1000 (1.4-6.5); NEUT% 43.5 % (42.2-75.2); PLT 163 X1000 (130-400); RDW 13.6 % (11.5-14.5); WBC 8.83 X1000 (4.8-10.8)
[2019-05-21 06:31] LABS: AGAP 9; ALBUMIN 2.7 g/dL (3.5-5.0); BUN 7 mg/dL (8-22); CALCIUM 8.5 mg/dL (8.8-10.2); CHLORIDE 103 mmol/L (98-107); COSMO 277; CREATININE 0.7 mg/dL (0.7-1.2); ESTIMATED GFR > 60; GLUCOSE 100 mg/dL (70-104); PHOSPHORUS 3.2 mg/dL (2.7-4.5); POTASSIUM 3.4 mmol/L (3.5-5.1); SODIUM 140 mmol/L (136-145); TCO2 28 mmol/L (25-35)
[2019-05-21 06:38] LABS: ALB/GLOB RATIO 1.2; ALBUMIN 2.8 g/dL (3.5-5.0); DIRECT BILIRUBIN 0.1 mg/dL (0.00-0.20); TOTAL BILIRUBIN 0.25 mg/dL (0.20-1.00); TOTAL PROTEIN 5.2 g/dL (6.3-8.3)
[2019-05-21] MEDS: FOLIC ACID PO SCH (08:36)
[2019-05-21] MEDS: VITAMIN B-1 PO SCH (08:36)
[2019-05-21] MEDS: LIPITOR PO SCH (08:36)
[2019-05-21] MEDS: CENTRUM SILVER PO SCH (08:36)
[2019-05-21] MEDS: PRILOSEC PO SCH (08:36)
[2019-05-21] MEDS: LOVENOX SUBQ SCH ×2 (08:37→09:12)
[2019-05-21] MEDS: PRINIVIL PO SCH (08:37)
[2019-05-21] MEDS: ASPIRIN PO SCH (08:37)
[2019-05-21] MEDS: MORPHINE IV PRN ×3 (08:42→18:36)
--- NOTE | 2019-05-21 08:53 | Diag Imaging Result Doc PS360 ---
HIDA SCAN W/O EJECT. FRACTION - 05/21/2019 INDICATION: check for cystic duct patency TECHNIQUE: 5.8 mCi of Choletec was administered COMPARISON: Ultrasound from 05/16/2019 FINDINGS: There is normal uptake and clearance by the liver. There is normal excretion into the gallbladder and small bowel. IMPRESSION: Cystic duct is patent. No evidence for acute cholecystitis. Electronically signed by Aydin Bar 05/21/2019 8:51 AM
[2019-05-21] MEDS: DUONEB (A & A) INH PRN ×2 (09:55→16:00)
--- NOTE | 2019-05-21 10:34 | CARDIOLOGY PROGRESS NOTE ---
DATE: 05/21/2019 CHIEF COMPLAINT: Shortness of breath. Weakness. SUBJECTIVE: Mr. Chu is doing better. He is not having a whole lot of any discomfort. He is breathing comfortably. He has been moved to the stepdown unit. OBJECTIVE: Vital signs: Blood pressure 104/64, temperature 99.2 degrees, pulse 67, respirations 16. General: He is awake, alert, oriented, no distress. HEENT: Unremarkable. Chest: Diffusely breath sounds at bases, no rales. Heart: Sounds are regular and rhythmic. No gallop or murmur. Abdomen: Nontender. Extremities: Showed no edema. Neurologic exam: Follows commands, moves all 4 extremities. BLOOD WORK: Sodium is 140, potassium 3.4, BUN 7, creatinine 0.7. Hemoglobin is 9.7. IMPRESSION: 1. Patient who presented with what appears to be a lower respiratory infection, possibly pneumonia. 2. Patient with cardiomyopathy, etiology is unclear, possibly toxic, cocaine- related, or other etiologies. Ejection fraction 10% to 15%. 3. Chronic obstructive pulmonary disease. 4. Hepatitis B positive. Abnormal liver function tests. Question of non-ST myocardial infarction secondary to a systemic infection/process, type 2 myocardial infarction. 5. Poly Substance abuse. Cocaine, etc. RECOMMENDATIONS: At this time, the patient seems to be doing better. Today, they are doing a HIDA scan to determine whether or not his gallbladder is functioning or not. Cardiac-driscoll, I think the patient may proceed with the surgery. I did call the GI Department in the case because of his abnormal liver function tests and to see if some of those tests could be creating confusion as far as whether or not he may have inflammation of the biliary tract. At this time, the patient seems to be on sound regimen of INDIRA inhibitors, and he seems to be euvolemic. He appears to have a deep-seated pulmonary infection that I believe it is being treated with antibiotic and he seems to be responding. At this time, I do not have any further suggestions. Upon discharge, refer the patient for followup, however make sure that he is assigned to a primary care physician because he has multiple other issues that require attention. cc: Raphael Naranjo MD [facility] [place]
--- NOTE | 2019-05-21 11:28 | GENERAL SURGERY PROGRESS NOTE ---
DATE: 05/21/2019 Mr. Chu remains at temp of 99.2 degrees, his heart rate is 63, blood pressure 104/64. His abdomen is soft and really nontender. His white count is down to 8800. His HIDA scan today shows patency of the cystic duct. In view of this finding, we now can deduce that his gallbladder will empty, and therefore the necessity of cholecystectomy becomes less. In fact, with his improvement clinically, fall in white count, improvement in his symptoms, then I would simply indefinitely delay any consideration for cholecystectomy. This will allow his heart situation to improve, and his other medical problems including his respiratory status to improve as well, so I would simply not plan to keep him here for cholecystectomy, but rather allow him to be discharged and improve clinically from his cardiopulmonary status, and then if he has repeat cholecystitis symptoms in the future, then we will reconsider surgery. cc: Jimmy Hsieh MD
[2019-05-21] MEDS ORDERED: KLOR-CON PO ONE (13:01)
--- NOTE | 2019-05-21 13:22 | PROGRESS NOTE ---
DATE: 05/21/2019 SUBJECTIVE: Patient reports feeling fine. Denies any fever or chills, no shortness of breath or chest pain. No acute issues noted as per nursing staff overnight. OBJECTIVE: Vital Signs: Temperature 97.7 degrees, heart rate 71, respiratory rate 20, blood pressure 125/82, O2 saturation 100% on room air General: This is a chronically ill-looking, 53- year-old -[place] male, lying in bed in no acute distress. Cardiovascular: S1, S2 heard. No murmurs, gallops, or rubs. Regular rate and rhythm. Respiratory: Clear bilaterally to auscultation. No work of breathing or using accessory muscles. Abdomen: Soft, nontender to palpation. Bowel sounds present. No organomegaly. No signs of peritoneal irritation. Elizabeth sign negative. Extremities: No clubbing, cyanosis, or edema. Peripheral pulses present in both legs. Neurological: Patient is alert and oriented x3. Moves 4 extremities. LABORATORY DATA: White cell count 8.83, hemoglobin 9.7, hematocrit 28.9, platelets 163,000 with potassium 3.4. Rest of the BMP is unremarkable. ASSESSMENT AND PLAN: 1. Septic shock likely from acute cholecystitis and right lower lobe bronchopneumonia. Clinically, this patient is doing fine. I think all those conditions are resolved. To confirm if there is still cholecystitis, a HIDA scan has been done and that is negative, so cholecystitis has been ruled out today. Regarding pneumonia, he is doing fine. He has been receiving antibiotics for the last 5 days with Zyvox and Zosyn. Blood culture did not show any growth for last 5 days as well as urine culture. So at this point, I think patient is much more stable and those conditions and pneumonia can be treated as an outpatient. 2. Acute cholecystitis as we mentioned above. That condition has been ruled out. 3. 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 Cardiology is following this patient. They think that he can be discharged from their standpoint. He will need followup in the office. His condition is pretty much stable. No pulmonary edema on the x-ray. No important edema of both lower extremities. 4. Acute liver failure and acute kidney injury in the said in the setting of septic shock. That condition is completely resolved. 5. History of polysubstance abuse including tobacco, alcohol, cocaine and marijuana. Patient has been counseled many times about quitting using recreational drugs. Patient acknowledged understanding. 6. Hepatitis B recently diagnosed, has been evaluated by Gastroenterology and they will see him as an outpatient if needed. DISPOSITION: At this point, I will transfer this patient to a regular room, and if he is doing fine tomorrow, we will discharge him. cc: William Liriano MD
[2019-05-22] MEDS: MORPHINE IV PRN ×3 (00:08→14:10)
[2019-05-22] MEDS: ZOSYN 3.375 GM in NS 50 ML IV SCH ×3 (03:34→14:11)
[2019-05-22] MEDS: ZYVOX 600 MG/D5W 600 MG/300 ML IVPB IV SCH ×2 (03:34→14:11)
[2019-05-22 05:22] LABS: BASO# 0.04 X1000 (0.0-0.2); BASO% 0.4 % (0.0-0.8); EOS# 0.49 X1000 (0.0-0.7); EOS% 5.2 % (0.0-10.0); HEMATOCRIT 28.9 % (42.0-52.0); HEMOGLOBIN 9.8 g/dL (14.0-18.0); IMM GRAN# 0.02 X1000 (0.0-0.04); IMM GRAN% 0.2 % (0.0-0.5); LYMPH# 3.28 X1000 (1.2-3.4); LYMPH% 34.9 % (20.5-51.1); MCH 32.8 PG (27-31); MCHC 33.9 g/dL (33-37); MCV 96.7 FL (81-99); MONO# 1.36 X1000 (0.11-0.59); MONO% 14.5 % (1.7-9.3); NEUT% 44.8 % (42.2-75.2); PLT 191 X1000 (130-400); RBC 2.99 XMIL (4.7-6.1); RDW 14.2 % (11.5-14.5); WBC 9.39 X1000 (4.8-10.8)
[2019-05-22 05:51] LABS: AGAP 7; BUN 9 mg/dL (8-22); CALCIUM 8.6 mg/dL (8.8-10.2); CHLORIDE 101 mmol/L (98-107); COSMO 275; CREATININE 0.7 mg/dL (0.7-1.2); ESTIMATED GFR > 60; GLUCOSE 111 mg/dL (70-104); POTASSIUM 3.9 mmol/L (3.5-5.1); SODIUM 138 mmol/L (136-145); TCO2 30 mmol/L (25-35)
[2019-05-22 05:53] LABS: ALBUMIN 2.9 g/dL (3.5-5.0); DIRECT BILIRUBIN 0.1 mg/dL (0.00-0.20); TOTAL BILIRUBIN 0.21 mg/dL (0.20-1.00); TOTAL PROTEIN 5.8 g/dL (6.3-8.3)
[2019-05-22] MEDS: PRILOSEC PO SCH (06:40)
[2019-05-22] MEDS: LIPITOR PO SCH (08:12)
[2019-05-22] MEDS: PRINIVIL PO SCH (08:12)
[2019-05-22] MEDS: FOLIC ACID PO SCH (08:12)
[2019-05-22] MEDS: VITAMIN B-1 PO SCH (08:13)
[2019-05-22] MEDS: ASPIRIN PO SCH (08:13)
[2019-05-22] MEDS: CENTRUM SILVER PO SCH (08:13)
[2019-05-22 08:15] VITALS: BP 113/68
[2019-05-22] MEDS: LOVENOX SUBQ SCH (10:20)
[2019-05-22] MEDS: DUONEB (A & A) INH PRN (14:24)
--- NOTE | 2019-05-22 21:45 | DISCHARGE SUMMARY ---
ADMISSION DATE: 05/16/2019 DISCHARGE DATE: 05/22/2019 CONSULTS: 1. Cardiology, Dr. Naranjo 2. General Surgery, Dr. Hsieh 3. GI, Dr. Sherman. DISCHARGE DIAGNOSES: 1. Pneumonia. 2. Septic shock, resolved. 3. Elevated liver function tests, likely shock liver. 4. Systolic congestive heart failure. 5. Polysubstance abuse including tobacco, alcohol, cocaine, and marijuana. 6. Elevated troponin, likely demand ischemia/type 2 myocardial infarction. 7. Chronic obstructive pulmonary disease without exacerbation. HOSPITAL COURSE: The patient with history of COPD and polysubstance abuse, came in complaining of cough productive of green sputum with dyspnea and chest pain. He was found to be hypotensive and despite fluid resuscitation remained somewhat low. He required pressors briefly but improved fairly rapidly with empiric antibiotics. He was also found to have acute kidney injury and elevated liver function tests. His creatinine was 1.3, with treatment improved down to 0.7 at discharge. His initial LFT showed a bilirubin of 2, AST 123, ALT also 123, alkaline phosphatase 127. These also trended down to normal with treatment of the above. There was some question of whether patient might have a recent diagnosis of hepatitis B, but hepatitis panel screen and hep-B PCR were both negative. The patient had mildly elevated troponin on admission at 176, but this is also trended down to 63 and was favored to be demand ischemia related to his acute illness. Echo showed significantly decreased EF at 10% to 15% with severe global hypokinesis, but he was never really volume overloaded. CT abdomen and pelvis showed cholelithiasis with some concern for cholecystitis, but as his LFTs and bilirubin normalized and HIDA scan was obtained which showed normal gallbladder function, it was thought this was likely an incidental finding rather than true cholecystitis. The patient's respiratory status improved rapidly and on the day of discharge, he was saturating well on room air with no further dyspnea. He was afebrile. LFTs had normalized. He was eating and drinking well. The patient was transitioned to oral doxycycline to finish course of treatment. He is to follow up with Cardiology and into his PCP. PHYSICAL EXAMINATION: Discharge Vital Signs: Temperature 98.3 degrees, pulse 72, respirations 16, blood pressure 113/60, O2 saturation 100% on room air next. DISCHARGE DIET: Regular. DISCHARGE MEDICATIONS: Albuterol inhaler q.4-6 hours p.r.n., aspirin 81 mg p.o. daily, Coreg 3.125 mg p.o. b.i.d., doxycycline 100 mg p.o. b.i.d. for an additional 7 days, atorvastatin 40 mg p.o. daily, nicotine patch 21 mg daily as needed, lisinopril 5 mg p.o. daily. FOLLOWUP AND PLAN: Patient discharged home with doxycycline to finish course of treatment for pneumonia. Patient to follow up with Cardiology for new diagnosis of systolic congestive heart failure, EF 10% to 15%. Encouraged patient to stop smoking and cease illicit drugs.
== END 2019-05-22 16:01 | disposition home or self-care (01) | DRG 871 ==
LOC: P.ED 22:27 → EDIPHOLD 05-16 02:39 → ICU 05-16 04:38 → SUATTDRO 05-16 04:38 → 2N 05-20 09:56 → 1N 05-21 18:27
PROVIDERS: ATTEND Internal Medicine